=== PATIENT | female | born 1935 | race Caucasian/White ===

== ENCOUNTER → 2017-12-07 05:00 | Outpatient (REF) | payer MEDICARE, SELFPAY ==
[2017-12-07 09:23] LABS: Digoxin Level 2.02 ng/mL (0.80-2.00)
== END ==
LOC: OLS.DANBUR 05:00
PROVIDERS: Visit Provider Family Medicine
DX: I48.91 Unspecified atrial fibrillation (principal); I50.9 Heart failure, unspecified
CPT/HCPCS: 36415; 80162

== ENCOUNTER → 2017-12-12 07:55 | Outpatient (REF) | payer MEDICARE, SELFPAY ==
[2017-12-12 09:29] LABS: Vitamin B12 788 pg/mL (211-911)
== END ==
LOC: OLS.DANBUR 07:55
PROVIDERS: Visit Provider Family Medicine
DX: E53.8 Deficiency of other specified B group vitamins (principal)
CPT/HCPCS: 36415; 82607

== ENCOUNTER → 2017-12-28 05:00 | Outpatient (REF) | payer MEDICARE, SELFPAY ==
[2017-12-28 08:41] LABS: Hematocrit 35.6 % (37-47); Hemoglobin 10.2 g/dl (12.0-15.0); Mean Corp Hgb Conc 28.7 g/gl (32-36); Mean Corpuscular Hgb 24.3 pg (27.0-32.0); Mean Corpuscular Volume 84.8 fL (81-99); Mean Platelet Vol. 9.7 fl (6.2-12.0); Platelet Count 262 K/mm3 (150-450); RBC Distribution Width SD 68.3 fl (35.1-43.9); White Blood Count 5.3 K/mm3 (4.4-11.0)
[2017-12-28 08:46] LABS: Scan Indicated on CBC? Y/N YES- FLAGS NOTED
[2017-12-28 09:04] LABS: ALB/GLOB Ratio 0.8 RATIO (0.9-2.4); AST(SGOT) 20 U/L (15-37); Alanine Aminotransfer ALT/SGPT 17 U/L (13-56); Alkaline Phosphatase 85 U/L (45-117); Anion Gap 7 (5-15); BUN 20 mg/dL (7-18); BUN/Creat Ratio 15.7 RATIO (10-20); Calcium,Total 9.2 mg/dL (8.5-10.1); Chloride 102 mmol/L (98-107); Creatinine, Serum 1.27 mg/dL (0.55-1.02); EST Glomerular Filtration Rate 43 mL/min (>60); Est Glom Filt Rate - Afr Amer 52 mL/min (>60); Globulin 3.7 g/dL (2.2-4.2); Glucose 79 mg/dL (74-106); Potassium 4.1 mmol/L (3.5-5.1); Protein, Total 6.7 g/dL (6.4-8.2); Sodium Level 140 mmol/L (136-145); Thyroid Stim Hormone (TSH) 2.07 uIU/mL (0.358-3.74)
== END ==
LOC: OLS.DANBUR 05:00
PROVIDERS: Visit Provider Family Medicine
DX: I48.91 Unspecified atrial fibrillation (principal); D64.9 Anemia, unspecified; I11.0 Hypertensive heart disease with heart failure; I50.9 Heart failure, unspecified; E78.5 Hyperlipidemia, unspecified; E03.9 Hypothyroidism, unspecified; I25.10 Atherosclerotic heart disease of native coronary artery without angina pectoris; E53.8 Deficiency of other specified B group vitamins
CPT/HCPCS: 36415; 80053; 84443; 85027

== ENCOUNTER → 2018-01-04 05:00 | Outpatient (REF) | payer MEDICARE, SELFPAY ==
[2018-01-04 08:35] LABS: Anion Gap 6 (5-15); BUN 21 mg/dL (7-18); BUN/Creat Ratio 16.5 RATIO (10-20); Calcium,Total 9.5 mg/dL (8.5-10.1); Chloride 103 mmol/L (98-107); Creatinine, Serum 1.27 mg/dL (0.55-1.02); EST Glomerular Filtration Rate 43 mL/min (>60); Est Glom Filt Rate - Afr Amer 52 mL/min (>60); Glucose 80 mg/dL (74-106); Potassium 4.3 mmol/L (3.5-5.1); Sodium Level 140 mmol/L (136-145); Thyroid Stim Hormone (TSH) 3.12 uIU/mL (0.358-3.74)
== END ==
LOC: OLS.DANBUR 05:00
PROVIDERS: Visit Provider Family Medicine
DX: I48.91 Unspecified atrial fibrillation (principal); D64.9 Anemia, unspecified; I50.9 Heart failure, unspecified; I10 Essential (primary) hypertension; E78.5 Hyperlipidemia, unspecified; E03.9 Hypothyroidism, unspecified
CPT/HCPCS: 36415; 80048; 84443

== ENCOUNTER 2018-01-31 04:33 | Emergency (ER) | payer MEDICARE, SELFPAY ==
[2018-01-31 04:35] VITALS: BP 137/82; PULSE 80; RESP 18; TEMP 37; O2SAT 94; BMI 22.4
[2018-01-31 04:40] VITALS: O2SAT 95
--- NOTE | 2018-01-31 04:52 | RAD_ITS ---
HISTORY: S/P FALLRT WRIST AND HAND ARE PAINFULMULTIPLE SKIN TEARS TO POSTERIOR HAND AND WRIST COMPARISON: None FINDINGS: XR Hand Min 3 Views: Generalized bony demineralization. No fracture or dislocation. At the wrist, advanced osteoarthritis with marked narrowing of the first carpometacarpal joint accompanied by subchondral sclerosis, marginal spurring, and periarticular ossicle formation. At the hand, advanced osteoarthritis of the DIP joints with joint space narrowing and marginal sclerosis. Marked narrowing of the IP joint of the thumb accompanied by marginal spurring and mild subluxation deformity. Additional narrowing of the metacarpophalangeal joints. Atherosclerotic calcifications. RAD/Hand Min 3 Views IMPRESSION: 1. Negative for fracture or acute osseous abnormality. 2. Polyarticular advanced osteoarthritis. Details above. at 0548 Reported and signed by: Jesus Mobley MD Electronically Signed: Jesus Mobley, at 5:46 EST Tel , Service support ,
--- NOTE | 2018-01-31 04:52 | RAD_ITS ---
HISTORY: S/P FALLRT WRIST AND HAND ARE PAINFULMULTIPLE SKIN TEARS TO POSTERIOR HAND AND WRIST COMPARISON: None FINDINGS: XR Wrist Min 3 Views No fracture or dislocation. Advanced osteoarthritis with marked narrowing of the first carpometacarpal joint accompanied by subchondral sclerosis, marginal spurring, and periarticular ossicle formation. Additional mild narrowing of the scaphotrapezial-trapezoidal joint. Extensive atherosclerotic calcifications. RAD/Wrist min 3 Views IMPRESSION: 1. No fracture or acute disease. 2. Advanced osteoarthritis of the radial right wrist. 3. Atherosclerotic calcifications. at 0541 Reported and signed by: Jesus Mobley MD Electronically Signed: Jesus Mobley, at 5:39 EST Tel , Service support ,
--- NOTE | 2018-01-31 04:52 | CT_ITS ---
HISTORY: FELL IN BATHROOM, DENIES HITTING HEAD, NECK PAIN TECHNIQUE: Helically acquired images were obtained of the cervical spine. 2D reformatted images were reviewed. A radiation dose optimization technique was used for this scan. IV Contrast dosage and agent: None. COMPARISON: None FINDINGS: Cervical hyperlordosis and this is commonly seen in association with dorsal kyphosis in the elderly. Cervical vertebra are normal in height. No fracture or suspicious bony lesion. The craniocervical junction is intact. No central canal or foraminal stenosis identified. Incidental note of atherosclerotic, ectatic thoracic aorta. CT/Spine Cervical without Contras IMPRESSION: 1. Negative for fracture or acute osseous abnormality. 2. Cervical hyperlordosis. 3. No spinal stenosis or significant degenerative changes. 4. Atherosclerotic, ectatic thoracic aorta. Individualized dose optimization techniques were used for this CT. at 0537 Reported and signed by: Jesus Mobley MD Electronically Signed: Jesus Mobley, at 5:35 EST Tel , Service support ,
--- NOTE | 2018-01-31 04:52 | CT_ITS ---
HISTORY: FELL IN BATHROOM, DENIES HITTING HEAD, NECK PAIN TECHNIQUE: Multiple axial images were obtained of the brain without intravenous contrast. A radiation dose optimization technique was used for this scan. IV Contrast dosage and agent: None. COMPARISON: None FINDINGS: Normal ventricles. Mild cerebral cortical atrophy. Tiny perivascular space or possibly tiny remote lacunar infarct at the left basal ganglia. No intercranial mass, hemorrhage, or acute disease. Posterior fossa structures are unremarkable. No suspicious extra-axial fluid collection. Bilateral carotid atherosclerotic calcifications. Intact calvarium. No scalp hematoma seen. As visualized, the mastoids and paranasal sinuses are unremarkable. CT/Brain/Head without Contrast IMPRESSION: No hemorrhage or acute disease. Individualized dose optimization techniques were used for this CT. at 7130 Reported and signed by: Jesus Mobley MD Electronically Signed: Jesus Mobley, at 5:28 EST Tel , Service support ,
--- NOTE | 2018-01-31 05:59 | ED.VISSUMM ---
- ER Visit Summary Date of Service: 01/31/18 Chief Complaint: Fall History of Present Illness: The patient is a 82 F who presents after a fall. She does have a history of dementia. She does not remember her fall. The assisted living facility reported that she is often confused. She was able to crawl to the recliner and called the nurse herself. She currently complains of pain in her right wrist and hand. She also complains of some neck pain. No headache. No vomiting. No chest pain shortness of breath or recent illness. No fever. Physical Examination: Afebrile vitals normal Heart regular rate and rhythm C-collar No reproducible cervical tenderness Lungs are clear Abdomen soft Active full range of motion x4 extremities Multiple skin tears over the back of the right hand there is a stellate skin tear measuring a total of 5 cm there is a second above this which measures 3 cm and there is a 1 cm skin tear near the second metacarpal phalangeal joint she has brisk capillary refill normal sensation Test Results: CT of the head is negative for hemorrhage no acute findings. CT the cervical spine is negative fracture. X-rays of the right wrist show no fracture as read by radiology. X-rays of the right hand as read by me show no fracture. Emergency Department Course and Treatment: Patient has multiple skin tears. She is also allergic to local anesthetics and Benadryl. I do not leave these would be suturable skin would likely just tear further. Steri-Strips were applied to approximate multiple skin tears given that they are quite wide. Dressings were applied. Imaging negative as above and patient will be discharged back to her assisted living. Treatment Plan: [] Disposition: Discharge Impression: Cervical sprain Multiple skin tears of right hand This note was generated with [employer] ([place] dictation software. It may contain incorrect words, spelling, and punctuation that were not noted in review of the chart prior to signing ED Disposition - Plan for ED Patient: Chief Complaint: Fall Referrals: José Manuel Conley MD [Primary Care Provider] -
--- NOTE | 2018-01-31 06:01 | ED.DEP ---
ED Disposition - Plan for ED Patient: Chief Complaint: Fall Instructions: ED Avulsion Dermal, ED Sprain Strain Neck Referrals: José Manuel Conley MD [Primary Care Provider] -
--- NOTE | 2018-01-31 06:25 | NURSING ---
report called to [facility] for return of pt. spoke with nurse about results and hand skin tear.
[2018-01-31 06:27] VITALS: BP 121/66; PULSE 92; RESP 16; O2SAT 96
== END 2018-01-31 06:28 | disposition home or self-care (01) ==
LOC: ED 04:54
PROVIDERS: Emergency Provider Emergency Medicine; Family Provider Family Medicine; PCP Family Medicine
DX: S13.4XXA Sprain of ligaments of cervical spine, initial encounter (principal); S61.411A Laceration without foreign body of right hand, initial encounter; W18.30XA Fall on same level, unspecified, initial encounter; Y93.9 Activity, unspecified; Y92.129 Unspecified place in nursing home as the place of occurrence of the external cause; Y99.9 Unspecified external cause status; F03.90 Unspecified dementia, unspecified severity, without behavioral disturbance, psychotic disturbance, mood disturbance, and anxiety; I25.10 Atherosclerotic heart disease of native coronary artery without angina pectoris; K21.9 Gastro-esophageal reflux disease without esophagitis; I10 Essential (primary) hypertension; I48.91 Unspecified atrial fibrillation; E78.00 Pure hypercholesterolemia, unspecified; Z72.0 Tobacco use; Z95.0 Presence of cardiac pacemaker
CPT/HCPCS: 70450; 72125; 73110; 73130; 99284

== ENCOUNTER → 2018-03-22 14:15 | Outpatient (REF) | payer MEDICARE, SELFPAY ==
[2018-03-23 08:38] LABS: Bacteria 0 SEEN /hpf (None Seen); Red Blood Cells-Urine 0 SEEN /hpf (0-5); White Blood Cells 0 SEEN /hpf (0-5)
[2018-03-23 08:55] LABS: Color, Urine Yellow (Yellow); Glucose, Dipstick Normal (Normal); Ketone-Dipstick Negative (Negative); Leukocyte Esterase-Dipstick Negative /ul (Negative); Nitrite-Dipstick Negative (Negative); Occult Blood-Urine Negative /ul (Negative); Protein-Dipstick Negative (Negative); Specific Gravity, Urine 1.015 (1.002-1.030); Urine Bilirubin Dipstick Negative (Negative); Urine Clarity Sl. Cloudy (Clear); Urine Urobilinogen Normal (Normal)
[2018-03-23 08:57] LABS: Calcium Oxalate Crystals Ur RARE /hpf (<or=2+); Mucous, Urine RARE /hpf (<or=2+); Squamous Epithelial Cells - UA 0-5 SEEN /hpf (5-10)
== END ==
LOC: OLS.DANBUR 14:15
PROVIDERS: Visit Provider Family Medicine
DX: R35.0 Frequency of micturition (principal); R32 Unspecified urinary incontinence
CPT/HCPCS: 81001; 87086; 87088

== ENCOUNTER → 2018-03-27 06:00 | Outpatient (REF) | payer MEDICARE, SELFPAY ==
[2018-03-27 08:49] LABS: Color, Urine Straw (Yellow); Glucose, Dipstick Normal (Normal); Ketone-Dipstick Negative (Negative); Leukocyte Esterase-Dipstick Negative /ul (Negative); Nitrite-Dipstick Negative (Negative); Occult Blood-Urine Negative /ul (Negative); Protein-Dipstick Negative (Negative); Urine Bilirubin Dipstick Negative (Negative); Urine Clarity Sl. Cloudy (Clear); Urine Urobilinogen Normal (Normal)
== END ==
LOC: OLS.DANBUR 06:00
PROVIDERS: Visit Provider Family Medicine
DX: N39.0 Urinary tract infection, site not specified (principal)
CPT/HCPCS: 81002; 87086; 87088

== ENCOUNTER 2018-04-18 16:17 | Inpatient (IN) | payer MEDICARE, SELFPAY ==
[2018-04-18 16:19] VITALS: BP 123/68; PULSE 63; PULSE 67; RESP 18; TEMP 36.7; O2SAT 95; O2SAT 96; BMI 27.2
--- NOTE | 2018-04-18 16:39 | RAD_ITS ---
STUDY: X-RAY - LEFT HIP REASON FOR EXAM: Female, 82 years old. Trauma TECHNIQUE: 2 views of the hip. COMPARISON: None. FINDINGS: There is an acute spiral fracture extending from the subtrochanteric shaft through the lesser trochanter with overlapping and varus angulation of fracture fragments.. Normal acetabulum. Normal hip joint. Deformity of the left inferior and superior pubic rami most likely representing old healed fractures. RAD/HIP, UNI W/ Pelvis 2-3 Views IMPRESSION: Acute displaced subtrochanteric/ intertrochanteric fracture of the left hip Electronically Signed: Everette Diez MD at 18:30 EST , Service support ,
--- NOTE | 2018-04-18 16:40 | EKG12_ITS ---
Test Reason : FALL Blood Pressure : / mmHG Vent. Rate : 069 BPM Atrial Rate : 069 BPM P-R Int : 186 ms QRS Dur : 138 ms QT Int : 466 ms P-R-T Axes : 051 -75 083 degrees QTc Int : 499 ms AV dual-paced rhythm Abnormal ECG Confirmed by ELOISA KILLIAN, ROMEO ([id number]), newspaper editor CONNIE DANIELS ([id number]) on 04/20/2018 3:13:17 PM Referred By: BRAYDEN Confirmed By:ROMEO AMIN MD
--- NOTE | 2018-04-18 16:40 | RAD_ITS ---
STUDY: X-RAY CHEST REASON FOR EXAM: Female, 82 years old. Trauma TECHNIQUE: AP portable COMPARISON: None. FINDINGS: The lungs are clear and expanded. There is no demonstrated pleural abnormality. Heart is mildly enlarged. Normal mediastinum and chris. Normal visualized pulmonary arteries. Normal visualized aortic arch and descending thoracic aorta. Pacer noted on the left with electrodes in satisfactory position Dorsal spine demonstrates scoliosis and degenerative changes. Normal visualized ribs, clavicles, and shoulders. There is no demonstrated abnormality of the visualized soft tissue structures of the upper abdomen. RAD/Chest 1 View (Portable) IMPRESSION: No acute cardiopulmonary pathology Electronically Signed: Everette Diez MD at 18:27 EST , Service support ,
--- NOTE | 2018-04-18 16:40 | CT_ITS ---
STUDY: CT BRAIN WITHOUT CONTRAST REASON FOR EXAM: Female, 82 years old. Trauma RADIATION DOSAGE (If Supplied By Facility): CTDIvol = ( 44.99 ) mGy, DLP = ( 745.49 ) mGycm TECHNIQUE: Transaxial CT imaging of the brain was performed without administration of intravenous contrast material. Individualized dose optimization techniques were used for this CT. COMPARISON: January 31, 2018 FINDINGS: Normal soft tissue structures. Normal calvarium. Mild atrophy and moderate periventricular white matter ischemic changes. Normal basal ganglia and thalami. Normal brainstem. Normal cerebellum. There is no intracranial hemorrhage. There are no findings of an acute ischemic infarction. Postsurgical changes of the orbits. Normal visualized paranasal sinuses. CT/Brain/Head without Contrast IMPRESSION: Atrophy and moderate periventricular white matter ischemic changes. No evidence for acute intracranial bleed Electronically Signed: Everette Diez MD at 18:18 EST , Service support ,
--- NOTE | 2018-04-18 16:40 | CT_ITS ---
STUDY: CT CERVICAL SPINE WITHOUT CONTRAST REASON FOR EXAM: Female, 82 years old. Trauma RADIATION DOSAGE (If Supplied By Facility): CTDIvol = ( 15.75 ) mGy, DLP = ( 270.28 ) mGycm TECHNIQUE: High resolution transaxial imaging was performed without contrast material. Sagittal and coronal images were reconstructed. Individualized dose optimization techniques were used for this CT. COMPARISON: None FINDINGS: Normal craniovertebral junction. Normal anterior atlantoaxial articulation. Normal odontoid process. Normal cervical lordosis. Normal vertebral bodies and posterior osseous elements. C2-3: Normal endplates. Normal disc height and small central disc protrusion. Normal central canal and intervertebral neuroforamina. C3-4: Normal endplates. Normal disc height and minor bulging of the disc. Normal central canal and intervertebral neuroforamina. C4-5: Normal endplates. Normal disc height and small central disc protrusion. Normal central canal. Mild left neural foraminal encroachment secondary to bony hypertrophy C5-6: Normal endplates. Normal disc height and minimal bulging of the disc. Normal central canal. Mild left neural foraminal stenosis secondary to bony hypertrophy. C6-7: Normal endplates. Normal disc height and morphology. Normal central canal. Minor left neuroforaminal stenosis secondary to bony hypertrophy. C7-T1: Normal endplates. Normal disc height and morphology. Normal central canal and intervertebral neuroforamina. Normal visualized soft tissue structures. CT/Spine Cervical without Contras IMPRESSION: No evidence for acute fracture or subluxation. Mild spondylosis Electronically Signed: Everette Diez MD at 18:26 EST , Service support ,
--- NOTE | 2018-04-18 16:42 | ED.VISSUMM ---
- ER Visit Summary Date of Service: 04/18/18 Chief Complaint: Fall History of Present Illness: The patient is a 82 F who presents with left hip injury that occurred today after a fall. Patient has a history of dementia does not remember what happened at the time of the fall. Patient states she remembers waking up on the floor. Patient states her pain is over the left hip. Patient states her pain is worse with movement. Patient denies any paresthesias or weakness. Patient does not think she hit her head. Patient denies any neck pain or back pain. Physical Examination: Vital signs are stable. Patient is afebrile. Patient is in no acute distress. Oral mucosa is pink and moist. Neck is supple. Trachea is midline. There is no JVD noted. Heart was regular rate and rhythm. Lungs are clear and equal bilaterally. Abdomen is soft and nontender. Cranial nerves II through XII are grossly intact. Patient is awake, alert, and oriented x2. Musculoskeletal exam reveals tenderness over the left hip. The left lower extremity is shortened and externally rotated. There is pain with internal and external rotation. Pedal pulses are equal bilaterally. Sensation was intact to light touch in all digits. The remaining physical exam is within normal limits. Test Results: X-rays of the left hip revealed a spiral oblique fracture of the right proximal femoral shaft in the subtrochanteric area. There is some displacement of the distal fragment medially. CT scan of the brain does not show any evidence of acute intracranial abnormality. CT scan of the cervical spine does not show any acute fracture or subluxation. Chest x-ray does not show any acute cardiopulmonary process. CBC was normal. Basic metabolic profile showed a slightly elevated BUN and creatinine of 34 and 1.61. Urinalysis was normal. PT with INR and PTT were normal. EKG showed a paced rhythm with a left bundle branch block. There are no acute ST or T wave changes. Emergency Department Course and Treatment: Patient was given morphine here. An ultrasound-guided femoral nerve block was performed by Dr. Monroe. Patient was given Zofran for vomiting. Patient was also given a subsequent dose of Dilaudid 0.5 mg. Case was discussed with Dr. Conley. He recommended hospitalist admission and consult. Case was discussed with Dr. Olivares. He will admit the patient. Disposition: Admit to hospital Impression: Left subtrochanteric fracture This note was generated with Dragon dictation software. It may contain incorrect words, spelling, and punctuation that were not noted in review of the chart prior to signing ED Disposition - Plan for ED Patient: Disposition: Acute Care Hospital [facility] Chief Complaint: Fall Diagnosis: Subtrochanteric fracture of left femur Referrals: José Manuel Conley MD [Primary Care Provider] -
--- NOTE | 2018-04-18 16:45 | NURSING ---
NO OLD EKGS
[2018-04-18] MEDS: Bupivacaine Mpf 0.5% 30 ML VIAL INFILT (16:57)
[2018-04-18] MEDS: Morphine 4 MG/ML Syringe IM (16:58)
[2018-04-18 17:00] LABS: ALB/GLOB Ratio 0.9 RATIO (0.9-2.4); AST(SGOT) 33 U/L (15-37); Alanine Aminotransfer ALT/SGPT 21 U/L (13-56); Albumin, Serum 3.6 g/dL (3.2-5.0); Alkaline Phosphatase 104 U/L (45-117); Anion Gap 10 (5-15); BUN 34 mg/dL (7-18); BUN/Creat Ratio 21.1 RATIO (10-20); Calcium,Total 8.8 mg/dL (8.5-10.1); Chloride 105 mmol/L (98-107); Creatinine, Serum 1.61 mg/dL (0.55-1.02); EST Glomerular Filtration Rate 32 mL/min (>60); Est Glom Filt Rate - Afr Amer 39 mL/min (>60); Estimated Creatinine Clearance 20.94 ml/min; Globulin 3.8 g/dL (2.2-4.2); Glucose 105 mg/dL (74-106); Potassium 4.3 mmol/L (3.5-5.1); Protein, Total 7.4 g/dL (6.4-8.2); Sodium Level 141 mmol/L (136-145)
[2018-04-18 17:05] LABS: Absolute Lymphocyte Count 2.08 X10^3/ul (0.83-4.51); Absolute Neutrophil Count 3.4 X10^3/uL (2.0-7.7); Basophil# 0.05 X10^3/uL; Basophil% 0.8 % (0-1); Eosinophil# 0.15 X10^3/uL; Eosinophils% 2.4 % (0-5); Hematocrit 40.1 % (37-47); Hemoglobin 12.4 g/dl (12.0-15.0); Lymphocyte # 2.08 X10^3/ul (4.0); Lymphocyte % 32.8 % (19-41); Mean Corp Hgb Conc 30.9 g/gl (32-36); Mean Corpuscular Hgb 27.7 pg (27.0-32.0); Mean Corpuscular Volume 89.7 fL (81-99); Monocyte# 0.64 X10^3/uL; Monocyte% 10.1 % (0-10); Neutrophil % 53.6 % (47-70); Platelet Count 218 K/mm3 (150-450); RBC Distribution Width CV 15.7 % (11.6-14.6); RBC Distribution Width SD 51.5 fl (35.1-43.9); Red Blood Count 4.47 M/mm3 (4.2-5.4); White Blood Count 6.3 K/mm3 (4.4-11.0)
[2018-04-18 17:06] LABS: POSITIVE COUNT NO; POSITIVE DIFFERENTIAL NO; POSITIVE MORPHOLOGY NO
[2018-04-18 17:08] LABS: Prothrombin Time (Protime)PT. 13.5 SECONDS (11.7-14.9)
[2018-04-18 17:09] LABS: Partial Thromboplast Time 34.9 Seconds (24.1-36.2)
--- NOTE | 2018-04-18 17:10 | ED.DCSUM_ITS ---
- ER Visit Summary Date of Service: 04/18/18 Procedure Note: Patient presented with a hip injury. Patient was verbally consented for ultrasound-guided femoral nerve block. Risks and benefits were explained, patient did voiced understanding. Patient's femoral nerve was identified using a linear probe. Patient's skin was then cleaned of ultrasound gel, and was prepped with chlorhexidine. Tegaderm was placed over top of the ultrasound probe. Clean gloves were utilized, a 19-gauge spinal needle with extension tubing and 20 cc of bupivacaine were used. Under direct visualization the needle was advanced until it was adjacent to but not touching the femoral nerve. Small injection aliquots of bupivacaine were visualized to ensure good placem ent, and then a total of 20 cc of bupivacaine was infiltrated. Patient tolerated this well. This note was generated with [employer] dictation software. It may contain incorrect words, spelling, and punctuation that were not noted in review of the chart prior to signing ED Disposition - Plan for ED Patient: Chief Complaint: Fall Referrals: José Manuel Conley MD [Primary Care Provider] -
[2018-04-18 17:35] LABS: Bacteria 0 SEEN /hpf (None Seen); Mucous, Urine 0 SEEN /hpf (<or=2+); Red Blood Cells-Urine 0 SEEN /hpf (0-5); White Blood Cells 0 SEEN /hpf (0-5)
[2018-04-18 17:39] LABS: Color, Urine Yellow (Yellow); Glucose, Dipstick Normal (Normal); Ketone-Dipstick Negative (Negative); Leukocyte Esterase-Dipstick Negative /ul (Negative); Nitrite-Dipstick Negative (Negative); Occult Blood-Urine Negative /ul (Negative); Protein-Dipstick Negative (Negative); Urine Bilirubin Dipstick Negative (Negative); Urine Clarity Clear (Clear); Urine Urobilinogen 1 mg/dl (Normal)
[2018-04-18 17:47] LABS: Hyaline Cast 0-5 SEEN /lpf (0-5); Squamous Epithelial Cells - UA 0-5 SEEN /hpf (5-10)
[2018-04-18] MEDS: Ondansetron 4 MG/2 ML Vial IV (18:01)
[2018-04-18 18:04] LABS: Digoxin Level 0.47 ng/mL (0.80-2.00)
[2018-04-18] MEDS: HYDROmorphone 0.5 MG/0.5 ML SYRINGE IV ×2 (18:10→19:14)
--- NOTE | 2018-04-18 18:35 | PCM.HP.STD ---
Problem List (1) Hip fracture Status: Acute (2) CHF (congestive heart failure) Status: Chronic (3) Afib Status: Chronic (4) CKD (chronic kidney disease) stage 3, GFR 30-59 ml/min Status: Chronic (5) Dementia Status: Chronic (6) Hypothyroidism Status: Chronic History of Present Illness Date of Admission: 04/18/18 Chief Complaint: left hip pain, fall The patient is a 82 year old F with a pmhx of dementia, afib, pacmaker in place, CHF, CKDIII, htn, hypothyroidism, who presents to the ER from [facility], after being found down after an unwitnessed fall. She was brought in by EMS and cannot provide a story as to what happened 2/2 dementia, just that she woke up on the floor. She is usually alert and oriented to self and place. She has had dementia for about 2 years that has worsened since she lost her . She had significant left hip pain requiring dilaudid. She then unerwent a femoral nerve block. She is currently resting comfortably in bed. She had imaging done revealing a subtroch/intertroch fracture of the left hip. She will be admitted for hip repair with Dr. Conley. [] Past Medical History Past Medical History (Chronic Problems): Chronic Problems CHF (congestive heart failure) (Chronic) Afib (Chronic) CKD (chronic kidney disease) stage 3, GFR 30-59 ml/min (Chronic) Dementia (Chronic) Hypothyroidism (Chronic) Allergies diphenhydramine [From Benadryl] Allergy (Verified 04/18/18 16:19) Unknown flecainide Allergy (Verified 04/18/18 16:19) Unknown procainamide Allergy (Verified 04/18/18 16:19) Unknown tetanus toxoid, adsorbed Allergy (Verified 04/18/18 16:19) Unknown trimethobenzamide [From Tigan] Allergy (Verified 04/18/18 16:19) Unknown Home Medications: Ambulatory Orders Medication Instructions Recorded Apixaban [Eliquis] 2.5 mg PO BID 01/31/18 Calcium Carbonate/Vitamin D3 1 each PO BID 01/31/18 [Calcium 600 + Vit D Caplet] Furosemide [Lasix] 40 mg PO DAILY 01/31/18 Levothyroxine [Synthroid] 75 mcg PO DAILY 01/31/18 Melatonin 5 mg PO DAILY 01/31/18 Nitroglycerin [Nitrostat] 0.4 mg SL X1 PRN 01/31/18 Omeprazole [Prilosec] 20 mg PO DAILY 01/31/18 Potassium Chloride [K-Dur] 20 meq PO BID 01/31/18 Ramipril [Altace] 1.25 mg PO DAILY 01/31/18 hydrOXYzine tablet [Atarax tablet] 25 mg PO PRN PRN 01/31/18 Acetaminophen [Tylenol] 650 mg PO TID PRN PRN 04/18/18 Ammonium Lactate [Skin Treatment] 1 applic TP DAILY 04/18/18 Ascorbic Acid [Vitamin C] 500 mg PO BID 04/18/18 Aspirin [Aspirin, Baby] 81 mg PO DAILY@0800 04/18/18 Cholecalciferol (Vitamin D3) 400 unit PO DAILY 04/18/18 [Vitamin D3] Cyanocobalamin [Vitamin B12] 100 mcg IM Q30D 04/18/18 Digoxin [Digox] 62.5 mcg PO DAILY 04/18/18 Donepezil HCl 5 mg PO QHS 04/18/18 Ferrous Sulfate 325 mg PO BID 04/18/18 Metoprolol Succinate [Toprol Xl] 25 mg PO DAILY 04/18/18 Mirtazapine [Remeron] 7.5 mg PO DAILY 04/18/18 Sertraline HCl [Zoloft] 75 mg PO DAILY 04/18/18 traMADol [Ultram (G)] 50 mg PO Q6H PRN PRN 04/18/18 Surgical History: hysterectomy, - - pacemaker, bunionectomy Psychiatric History: Anxiety, Depression TELEPHONIC NURSE History: No pertinent TELEPHONIC NURSE history Lives: - - assisted living [facility] Smoking Status: Never smoker Tobacco Use: Non-smoker Alcohol: None Drugs: None - *Family History Maternal History Items: No pertinent history Paternal History Items: No pertinent history Review of Systems Respiratory: Denies: Shortness of breath at rest, Sputum production Musculoskeletal: Reports: Joint Pain Psychiatric: Reports: Anxiety, Depression Unable to obtain accurate/complete ROS d/t: Pt has severe dementia VTE Information - Inpt Only VTE Present on Admission: No VTE Mechan Device Prophylaxis: None Reason prophylaxis not ordered:: Medical Contraindication Patient Problems: Active and Suspected Problems Hip fracture (Acute) - Physical Exam General: Alert, Cooperative, - - a/o x person / place HEENT: Atraumatic, PERRLA, EOMI, Normocephalic Neck: Supple, No JVD, Negative Carotid Bruits Lungs: Clear to auscultation, Normal air movement Cardiovascular: Regular rate Abdomen: Bowel Sounds Present, Soft, Non Tender Extremities: No edema, Capillary Refill Less than 3 Seconds Skin: No rashes, No breakdown Musculoskeletal: No Tenderness to Palpation of Joints or Extremities Neurological: Cranial nerves II-XII grossly intact Psych/Mental Status: Normal Affect, Appropriate Vital Signs Temp Pulse Resp BP Pulse Ox 98.1 F 67 18 123/68 H 96 04/18/18 16:19 04/18/18 16:19 04/18/18 16:19 04/18/18 16:19 04/18/18 16:19 Oxygen Delivery Method Room Air Weight: 148 lb 12.992 oz Body Mass Index (BMI) 27.2 Laboratory Tests Past 24 Hrs 04/18/18 04/18/18 04/18/18 16:20 16:20 16:20 WBC 6.3 RBC 4.47 Hgb 12.4 Hct 40.1 MCV 89.7 MCH 27.7 MCHC 30.9 L RDW 15.7 H RDW Differential 51.5 H Plt Count 218 MPV 10.0 Immature Gran % (Auto) 0.300 Neut % (Auto) 53.6 Lymph % (Auto) 32.8 [place] % (Auto) 10.1 H Eos % (Auto) 2.4 Baso % (Auto) 0.8 Absolute Neuts (auto) 3.4 Absolute Lymphs (auto) 2.08 Total Counted Not Reportable PT 13.5 INR 1.0 APTT 34.9 Sodium 141 Potassium 4.3 Chloride 105 Carbon Dioxide 26.0 Anion Gap 10 BUN 34 H Creatinine 1.61 H Estim Creat Clear Calc 20.94 Est GFR (MDRD) Af Amer 39 L Est GFR (MDRD) Non-Af 32 L BUN/Creatinine Ratio 21.1 H Glucose 105 Calcium 8.8 Total Bilirubin 0.80 AST 33 ALT 21 Alkaline Phosphatase 104 Total Protein 7.4 Albumin 3.6 Globulin 3.8 Albumin/Globulin Ratio 0.9 Urine Color Urine Clarity Urine pH Ur Specific [place] Urine Protein Urine Glucose (UA) Urine Ketones Urine Occult Blood Urine Nitrite Urine Bilirubin Urine Urobilinogen Ur Leukocyte Esterase Urine RBC Urine WBC Ur Squamous Epith Cells Urine Bacteria Hyaline Casts Urine Mucus Digoxin 04/18/18 04/18/18 16:20 17:28 WBC RBC Hgb Hct MCV MCH MCHC RDW RDW Differential Plt Count MPV Immature Gran % (Auto) Neut % (Auto) Lymph % (Auto) [place] % (Auto) Eos % (Auto) Baso % (Auto) Absolute Neuts (auto) Absolute Lymphs (auto) Total Counted PT INR APTT Sodium Potassium Chloride Carbon Dioxide Anion Gap BUN Creatinine Estim Creat Clear Calc Est GFR (MDRD) Af Amer Est GFR (MDRD) Non-Af BUN/Creatinine Ratio Glucose Calcium Total Bilirubin AST ALT Alkaline Phosphatase Total Protein Albumin Globulin Albumin/Globulin Ratio Urine Color Yellow Urine Clarity Clear Urine pH 5.0 Ur Specific [place] 1.020 Urine Protein Negative Urine Glucose (UA) Normal Urine Ketones Negative Urine Occult Blood Negative Urine Nitrite Negative Urine Bilirubin Negative Urine Urobilinogen 1 H Ur Leukocyte Esterase Negative Urine RBC 0 SEEN Urine WBC 0 SEEN Ur Squamous Epith Cells 0-5 SEEN Urine Bacteria 0 SEEN Hyaline Casts 0-5 SEEN Urine Mucus 0 SEEN Digoxin 0.47 L Assessment/Plan All Active Problems Hip fracture (Acute) 1. Acute displaced subtrochanteric, intertrochanteric fracture of the left hip secondary to unwitnessed fall-patient found down. Dr. Conley consulted. Hold Eliquis. Patient will have surgery when okay per orthopedics. Nerve block done. Continue supportive care. UA neg. CT brain and C spine neg. CXR neg. INR 1.0. 2. Severe dementia-patient lives at [facility]. Continue donepezil. 3. Atrial fibrillation-pacemaker in place. Rate stable. Eliquis held as above. Continue digoxin, metoprolol. Dig level low. 4. Hypertension-stable 5. CKD 3-trend BMP. IV fluids. 6. History of CHF-avoid overhydration. No signs of volume overload at this time. 7. Hypothyroidism-Synthroid 8. Anx/Dep - remeron, zoloft, melatonin, atarax. DVT prophylaxis: SCDs Discharge planning: Patient will need long-term at discharge. This patient was seen by Zeus Avery PA-C under the supervision of Doctor Velásquez.
[2018-04-18 18:36] VITALS: BP 108/55; PULSE 57; RESP 16; O2SAT 98
--- NOTE | 2018-04-18 18:41 | HP.PCM_ITS ---
Problem List (1) Hip fracture Status: Acute (2) CHF (congestive heart failure) Status: Chronic (3) Afib Status: Chronic (4) CKD (chronic kidney disease) stage 3, GFR 30-59 ml/min Status: Chronic (5) Dementia Status: Chronic (6) Hypothyroidism Status: Chronic History of Present Illness Date of Admission: 04/18/18 Chief Complaint: left hip pain, fall The patient is a 82 year old F with a pmhx of dementia, afib, pacmaker in place, CHF, CKDIII, htn, hypothyroidism, who presents to the ER from [facility], after being found down after an unwitnessed fall. She was brought in by EMS and cannot provide a story as to what happened 2/2 dementia, just that she woke up on the floor. She is usually alert and oriented to self and place. She has had dementia for about 2 years that has worsened since she lost her . She had significant left hip pain requiring dilaudid. She then unerwent a femoral nerve block. She is currently resting comfortably in bed. She had imaging done revealing a subtroch/intertroch fracture of the left hip. She will be admitted for hip repair with Dr. Conley. [] Past Medical History Past Medical History (Chronic Problems): Chronic Problems CHF (congestive heart failure) (Chronic) Afib (Chronic) CKD (chronic kidney disease) stage 3, GFR 30-59 ml/min (Chronic) Dementia (Chronic) Hypothyroidism (Chronic) Allergies diphenhydramine [From Benadryl] Allergy (Verified 04/18/18 16:19) Unknown flecainide Allergy (Verified 04/18/18 16:19) Unknown procainamide Allergy (Verified 04/18/18 16:19) Unknown tetanus toxoid, adsorbed Allergy (Verified 04/18/18 16:19) Unknown trimethobenzamide [From Tigan] Allergy (Verified 04/18/18 16:19) Unknown Home Medications: Ambulatory Orders Medication Instructions Recorded Apixaban [Eliquis] 2.5 mg PO BID 01/31/18 Calcium Carbonate/Vitamin D3 1 each PO BID 01/31/18 [Calcium 600 + Vit D Caplet] Furosemide [Lasix] 40 mg PO DAILY 01/31/18 Levothyroxine [Synthroid] 75 mcg PO DAILY 01/31/18 Melatonin 5 mg PO DAILY 01/31/18 Nitroglycerin [Nitrostat] 0.4 mg SL X1 PRN 01/31/18 Omeprazole [Prilosec] 20 mg PO DAILY 01/31/18 Potassium Chloride [K-Dur] 20 meq PO BID 01/31/18 Ramipril [Altace] 1.25 mg PO DAILY 01/31/18 hydrOXYzine tablet [Atarax tablet] 25 mg PO PRN PRN 01/31/18 Acetaminophen [Tylenol] 650 mg PO TID PRN PRN 04/18/18 Ammonium Lactate [Skin Treatment] 1 applic TP DAILY 04/18/18 Ascorbic Acid [Vitamin C] 500 mg PO BID 04/18/18 Aspirin [Aspirin, Baby] 81 mg PO DAILY@0800 04/18/18 Cholecalciferol (Vitamin D3) 400 unit PO DAILY 04/18/18 [Vitamin D3] Cyanocobalamin [Vitamin B12] 100 mcg IM Q30D 04/18/18 Digoxin [Digox] 62.5 mcg PO DAILY 04/18/18 Donepezil HCl 5 mg PO QHS 04/18/18 Ferrous Sulfate 325 mg PO BID 04/18/18 Metoprolol Succinate [Toprol Xl] 25 mg PO DAILY 04/18/18 Mirtazapine [Remeron] 7.5 mg PO DAILY 04/18/18 Sertraline HCl [Zoloft] 75 mg PO DAILY 04/18/18 traMADol [Ultram (G)] 50 mg PO Q6H PRN PRN 04/18/18 Surgical History: hysterectomy, - - pacemaker, bunionectomy Psychiatric History: Anxiety, Depression 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[employer] history Lives: - - assisted living [facility] Smoking Status: Never smoker Tobacco Use: Non-smoker Alcohol: None Drugs: None - *Family History Maternal History Items: No pertinent history Paternal History Items: No pertinent history Review of Systems Respiratory: Denies: Shortness of breath at rest, Sputum production Musculoskeletal: Reports: Joint Pain Psychiatric: Reports: Anxiety, Depression Unable to obtain accurate/complete ROS d/t: Pt has severe dementia VTE Information - Inpt Only VTE Present on Admission: No VTE Mechan Device Prophylaxis: None Reason prophylaxis not ordered:: Medical Contraindication Patient Problems: Active and Suspected Problems Hip fracture (Acute) - Physical Exam General: Alert, Cooperative, - - a/o x person / place HEENT: Atraumatic, PERRLA, EOMI, Normocephalic Neck: Supple, No JVD, Negative Carotid Bruits Lungs: Clear to auscultation, Normal air movement Cardiovascular: Regular rate Abdomen: Bowel Sounds Present, Soft, Non Tender Extremities: No edema, Capillary Refill Less than 3 Seconds Skin: No rashes, No breakdown Musculoskeletal: No Tenderness to Palpation of Joints or Extremities Neurological: Cranial nerves II-XII grossly intact Psych/Mental Status: Normal Affect, Appropriate Vital Signs Temp Pulse Resp BP Pulse Ox 98.1 F 67 18 123/68 H 96 04/18/18 16:19 04/18/18 16:19 04/18/18 16:19 04/18/18 16:19 04/18/18 16:19 Oxygen Delivery Method Room Air Weight: 148 lb 12.992 oz Body Mass Index (BMI) 27.2 Laboratory Tests Past 24 Hrs 04/18/18 04/18/18 04/18/18 16:20 16:20 16:20 WBC 6.3 RBC 4.47 Hgb 12.4 Hct 40.1 MCV 89.7 MCH 27.7 MCHC 30.9 L RDW 15.7 H RDW Differential 51.5 H Plt Count 218 MPV 10.0 Immature Gran % (Auto) 0.300 Neut % (Auto) 53.6 Lymph % (Auto) 32.8 [place] % (Auto) 10.1 H Eos % (Auto) 2.4 Baso % (Auto) 0.8 Absolute Neuts (auto) 3.4 Absolute Lymphs (auto) 2.08 Total Counted Not Reportable PT 13.5 INR 1.0 APTT 34.9 Sodium 141 Potassium 4.3 Chloride 105 Carbon Dioxide 26.0 Anion Gap 10 BUN 34 H Creatinine 1.61 H Estim Creat Clear Calc 20.94 Est GFR (MDRD) Af Amer 39 L Est GFR (MDRD) Non-Af 32 L BUN/Creatinine Ratio 21.1 H Glucose 105 Calcium 8.8 Total Bilirubin 0.80 AST 33 ALT 21 Alkaline Phosphatase 104 Total Protein 7.4 Albumin 3.6 Globulin 3.8 Albumin/Globulin Ratio 0.9 Urine Color Urine Clarity Urine pH Ur Specific [place] Urine Protein Urine Glucose (UA) Urine Ketones Urine Occult Blood Urine Nitrite Urine Bilirubin Urine Urobilinogen Ur Leukocyte Esterase Urine RBC Urine WBC Ur Squamous Epith Cells Urine Bacteria Hyaline Casts Urine Mucus Digoxin 04/18/18 04/18/18 16:20 17:28 WBC RBC Hgb Hct MCV MCH MCHC RDW RDW Differential Plt Count MPV Immature Gran % (Auto) Neut % (Auto) Lymph % (Auto) [place] % (Auto) Eos % (Auto) Baso % (Auto) Absolute Neuts (auto) Absolute Lymphs (auto) Total Counted PT INR APTT Sodium Potassium Chloride Carbon Dioxide Anion Gap BUN Creatinine Estim Creat Clear Calc Est GFR (MDRD) Af Amer Est GFR (MDRD) Non-Af BUN/Creatinine Ratio Glucose Calcium Total Bilirubin AST ALT Alkaline Phosphatase Total Protein Albumin Globulin Albumin/Globulin Ratio Urine Color Yellow Urine Clarity Clear Urine pH 5.0 Ur Specific [place] 1.020 Urine Protein Negative Urine Glucose (UA) Normal Urine Ketones Negative Urine Occult Blood Negative Urine Nitrite Negative Urine Bilirubin Negative Urine Urobilinogen 1 H Ur Leukocyte Esterase Negative Urine RBC 0 SEEN Urine WBC 0 SEEN Ur Squamous Epith Cells 0-5 SEEN Urine Bacteria 0 SEEN Hyaline Casts 0-5 SEEN Urine Mucus 0 SEEN Digoxin 0.47 L Assessment/Plan All Active Problems Hip fracture (Acute) 1. Acute displaced subtrochanteric, intertrochanteric fracture of the left hip secondary to unwitnessed fall-patient found down. Dr. Conley consulted. Hold Eliquis. Patient will have surgery when okay per orthopedics. Nerve block done. Continue supportive care. UA neg. CT brain and C spine neg. CXR neg. INR 1.0. 2. Severe dementia-patient lives at [facility]. Continue donepezil. 3. Atrial fibrillation-pacemaker in place. Rate stable. Eliquis held as above. Continue digoxin, metoprolol. Dig level low. 4. Hypertension-stable 5. CKD 3-trend BMP. IV fluids. 6. History of CHF-avoid overhydration. No signs of volume overload at this time. 7. Hypothyroidism-Synthroid 8. Anx/Dep - remeron, zoloft, melatonin, atarax. DVT prophylaxis: SCDs Discharge planning: Patient will need fci at discharge. This patient was seen by Zeus Avery PA-C under the supervision of Doctor Velásquez.
[2018-04-18 19:06] VITALS: BMI 24.3
[2018-04-18 19:07] VITALS: BMI 27.2
[2018-04-18 19:42] VITALS: BMI 24.3
[2018-04-18 19:44] VITALS: BP 124/68; PULSE 80; RESP 18; TEMP 37.1; O2SAT 100
[2018-04-18] MEDS: 0.9% Normal Saline 1,000 ML 75 ML IV (20:26)
[2018-04-18] MEDS: Mirtazapine 15 MG Tablet 7.5 MG PO (21:37)
[2018-04-18] MEDS: Donepezil HCl 10 MG Tablet PO (21:37)
[2018-04-18] MEDS: Acetaminophen 325 MG Tablet 650 MG PO (22:37)
[2018-04-19] VITALS (16 sets, daily range): BP systolic 101–148; BP diastolic 49–110; PULSE 62–75; RESP 14–20; TEMP 36.6–37.3; O2SAT 92–100
[2018-04-19] MEDS: Levothyroxine 75 MCG Tablet PO (05:05)
[2018-04-19] MEDS: Acetaminophen 325 MG Tablet 650 MG PO (05:05)
[2018-04-19 06:15] LABS: Absolute Lymphocyte Count 1.22 X10^3/ul (0.83-4.51); Absolute Neutrophil Count 4.8 X10^3/uL (2.0-7.7); Basophil# 0.02 X10^3/uL; Basophil% 0.3 % (0-1); Eosinophil# 0.02 X10^3/uL; Eosinophils% 0.3 % (0-5); Hematocrit 32.1 % (37-47); Hemoglobin 9.8 g/dl (12.0-15.0); Lymphocyte # 1.22 X10^3/ul (4.0); Lymphocyte % 17.5 % (19-41); Mean Corp Hgb Conc 30.5 g/gl (32-36); Mean Corpuscular Volume 91.7 fL (81-99); Mean Platelet Vol. 10.1 fl (6.2-12.0); Monocyte# 0.88 X10^3/uL; Monocyte% 12.6 % (0-10); Neutrophil # 4.83 X10^3/uL (2.7-7.7); Platelet Count 200 K/mm3 (150-450); RBC Distribution Width CV 15.8 % (11.6-14.6); RBC Distribution Width SD 51.5 fl (35.1-43.9)
[2018-04-19 06:20] LABS: Anion Gap 10 (5-15); BUN 38 mg/dL (7-18); BUN/Creat Ratio 25.7 RATIO (10-20); Calcium,Total 8.3 mg/dL (8.5-10.1); Chloride 107 mmol/L (98-107); Creatinine, Serum 1.48 mg/dL (0.55-1.02); EST Glomerular Filtration Rate 36 mL/min (>60); Est Glom Filt Rate - Afr Amer 43 mL/min (>60); Estimated Creatinine Clearance 21.73 ml/min; Glucose 105 mg/dL (74-106); POSITIVE COUNT NO; POSITIVE DIFFERENTIAL NO; POSITIVE MORPHOLOGY NO; Potassium 4.5 mmol/L (3.5-5.1); Sodium Level 144 mmol/L (136-145)
[2018-04-19 06:45] LABS: AST(SGOT) 26 U/L (15-37); Alanine Aminotransfer ALT/SGPT 17 U/L (13-56); Albumin, Serum 2.8 g/dL (3.2-5.0); Alkaline Phosphatase 81 U/L (45-117); Bilirubin, Direct 0.23 mg/dL (0.00-0.30); Globulin 3.2 g/dL (2.2-4.2)
--- NOTE | 2018-04-19 07:53 | PCM.PN.HOSP ---
Patient Problems: Active and Suspected Problems Hip fracture (Acute) Subtrochanteric fracture of left femur (Acute) Subjective: Patient is an 82-year-old lady resident at an assisted living facility who apparently sustained a fall and did complain of left hip pain. Patient was brought to the emergency department where imaging studies demonstrated Acute displaced subtrochanteric/ intertrochanteric fracture of the left hip patient admitted to a regular nursing floor with consultation placed to orthopedic surgery. Objective: GENERAL: cooperative HEENT: Atraumatic; moist oral mucosa EYES; Anicteric, Normal Conjunctiva NECK; supple, normal thyroid, no distended JVD. RESPIRATORY: Diminished to auscultation bilaterally, CARDIOVASCULAR: Regular S1 S2, systolic murmurs GI: soft, non-tender, normoactive bowel sounds, : No Renal angle tenderness; EXTREMITIES: No edema, no clubbing, no cyanosis. NEURO: Awake; no lateralizing signs. SKIN: No Rash PSYCH; Normal affect Vitals/I&O's: Vital Signs Temp Pulse Resp BP Pulse Ox 98.4 F 64 17 103/59 L 98 04/19/18 03:47 04/19/18 03:47 04/19/18 03:47 04/19/18 03:47 04/19/18 03:47 Oxygen Flow Rate (L/min) 1 Oxygen Delivery Method Nasal Cannula Weight: 60.1 kg Body Mass Index (BMI) 24.3 Intake and Output for Last 24 Hours 04/17/18 04/18/18 04/19/18 23:59 23:59 23:59 Intake Total 445 / 445 468 / 468 Output Total 100 / 100 200 / 200 Balance 345 / 345 268 / 268 Laboratory Results 04/18/18 16:20: WBC 6.3, RBC 4.47, Hgb 12.4, Hct 40.1, MCV 89.7, MCH 27.7, MCHC 30.9 L, RDW 15.7 H, RDW Differential 51.5 H, Plt Count 218, MPV 10.0, Immature Gran % (Auto) 0.300, Neut % (Auto) 53.6, Lymph % (Auto) 32.8, [place] % (Auto) 10.1 H, Eos % (Auto) 2.4, Baso % (Auto) 0.8, Absolute Neuts (auto) 3.4, Absolute Lymphs (auto) 2.08, Total Counted Not Reportable 04/18/18 16:20: PT 13.5, INR 1.0, APTT 34.9 04/18/18 16:20: Sodium 141, Potassium 4.3, Chloride 105, Carbon Dioxide 26.0, Anion Gap 10, BUN 34 H, Creatinine 1.61 H, Estim Creat Clear Calc 20.94, Est GFR (MDRD) Af Amer 39 L, Est GFR (MDRD) Non-Af 32 L, BUN/Creatinine Ratio 21.1 H, Glucose 105, Calcium 8.8, Total Bilirubin 0.80, AST 33, ALT 21, Alkaline Phosphatase 104, Total Protein 7.4, Albumin 3.6, Globulin 3.8, Albumin/Globulin Ratio 0.9 04/18/18 16:20: Digoxin 0.47 L 04/18/18 17:28: Urine Color Yellow, Urine Clarity Clear, Urine pH 5.0, Ur Specific [place] 1.020, Urine Protein Negative, Urine Glucose (UA) Normal, Urine Ketones Negative, Urine Occult Blood Negative, Urine Nitrite Negative, Urine Bilirubin Negative, Urine Urobilinogen 1 H, Ur Leukocyte Esterase Negative, Urine RBC 0 SEEN, Urine WBC 0 SEEN, Ur Squamous Epith Cells 0-5 SEEN, Urine Bacteria 0 SEEN, Hyaline Casts 0-5 SEEN, Urine Mucus 0 SEEN 04/19/18 05:42: WBC 7.0, RBC 3.50 L, Hgb 9.8 L, Hct 32.1 L, MCV 91.7, MCH 28.0, MCHC 30.5 L, RDW 15.8 H, RDW Differential 51.5 H, Plt Count 200, MPV 10.1, Immature Gran % (Auto) 0.300, Neut % (Auto) 69.0, Lymph % (Auto) 17.5 L, [place] % (Auto) 12.6 H, Eos % (Auto) 0.3, Baso % (Auto) 0.3, Absolute Neuts (auto) 4.8, Absolute Lymphs (auto) 1.22, Total Counted Not Reportable 04/19/18 05:42: Sodium 144, Potassium 4.5, Chloride 107, Carbon Dioxide 27.0, Anion Gap 10, BUN 38 H, Creatinine 1.48 H, Estim Creat Clear Calc 21.73, Est GFR (MDRD) Af Amer 43 L, Est GFR (MDRD) Non-Af 36 L, BUN/Creatinine Ratio 25.7 H, Glucose 105, Calcium 8.3 L 04/19/18 05:42: Blood Type A POSITIVE, Antibody Screen NEGATIVE 04/19/18 05:42: Total Bilirubin 0.80, Direct Bilirubin 0.23, AST 26, ALT 17, Alkaline Phosphatase 81, Total Protein 6.0 L, Albumin 2.8 L, Globulin 3.2, TSH 1.10 Current Medications Acetaminophen (Tylenol) 650 mg PO TID PRN PRN PRN Reason: PAIN Last Admin: 04/19/18 05:05 Dose: 650 mg Aspirin (Aspirin, Baby) 81 mg PO DAILY@0800 COUNTS INCLUDE 234 BEDS AT THE [facility] Digoxin (Lanoxin) 62.5 mcg PO DAILY COUNTS INCLUDE 234 BEDS AT THE [facility] Docusate Sodium (Colace) 100 mg PO BID COUNTS INCLUDE 234 BEDS AT THE [facility] Last Admin: 04/18/18 21:37 Dose: Not Given Donepezil HCl (Aricept) 10 mg PO QHS COUNTS INCLUDE 234 BEDS AT THE [facility] Last Admin: 04/18/18 21:37 Dose: 10 mg Ferrous Sulfate (Ferrous Sulfate) 325 mg PO 1200,1700 COUNTS INCLUDE 234 BEDS AT THE [facility] Furosemide (Lasix) 40 mg PO DAILY COUNTS INCLUDE 234 BEDS AT THE [facility] Hydromorphone HCl (Dilaudid Inj) 0.5 - 1 mg IV Q4H PRN PRN PRN Reason: SEVERE PAIN (6-10/10) Sodium Chloride () 1,000 mls @ 75 mls/hr IV .[id number] COUNTS INCLUDE 234 BEDS AT THE [facility] Last Admin: 04/18/18 20:26 Dose: 75 mls/hr Levothyroxine Sodium (Synthroid) 75 mcg PO DAILY@0600 COUNTS INCLUDE 234 BEDS AT THE [facility] Last Admin: 04/19/18 05:05 Dose: 75 mcg Metoprolol Succinate (Toprol Xl (Beta Issa)) 25 mg PO DAILY COUNTS INCLUDE 234 BEDS AT THE [facility] Mirtazapine (Remeron) 7.5 mg PO QHS COUNTS INCLUDE 234 BEDS AT THE [facility] Last Admin: 04/18/18 21:37 Dose: 7.5 mg Nutritional Formula (Lactose Free) (Ensure Enlive) 120 ml PO 4X/DAY COUNTS INCLUDE 234 BEDS AT THE [facility] Ondansetron HCl (Zofran) 4 mg IV Q6H PRN PRN PRN Reason: NAUSEA Oxycodone HCl (Oxyir) 10 mg PO Q4H PRN PRN PRN Reason: SEVERE PAIN (6-10/10) Pantoprazole Sodium (Protonix) 20 mg PO DAILY COUNTS INCLUDE 234 BEDS AT THE [facility] Potassium Chloride (K-Dur) 20 [facility] Ramipril (Altace) 1.25 mg PO DAILY COUNTS INCLUDE 234 BEDS AT THE [facility] Sertraline HCl (Zoloft) 75 mg PO DAILY COUNTS INCLUDE 234 BEDS AT THE [facility] Sodium Chloride () 5 - 15 ml IV UD PRN PRN Reason: SALINE FLUSH Medical Necessity - Tobacco Use Smoking Status: Never smoker Tobacco Use: Non-smoker Assessment/Plan All Active Problems Hip fracture (Acute) Subtrochanteric fracture of left femur (Acute) Patient is an 82-year-old lady resident at an assisted living facility who apparently sustained a fall and did complain of left hip pain. Patient was brought to the emergency department where imaging studies demonstrated Acute displaced subtrochanteric/ intertrochanteric fracture of the left hip patient admitted to a regular nursing floor with consultation placed to orthopedic surgery. 1. Fall with Acute displaced subtrochanteric, intertrochanteric fracture of the left hip patient admitted to regular nursing floor currently managed with immobilization, pain medications and consultation placed to Dr. Conley with orthopedic surgery for surgical intervention. Patient risk for surgical intervention was assessed to be low moderate. He has underlying history of conduction system disorder with a pacemaker in place also has paroxysmal A. fib on Eliquis which was held 2. Dementia patient is on Aricept continued with supportive care 3. Conduction system disorder status post pacemaker placement 4. Chronic A. fib rate controlled on digoxin and metoprolol patient on Eliquis held in anticipation of her surgery 5. Hypertension-blood pressure controlled, home medications continued with dose adjustment as needed 6. Chronic kidney disease stage III kidney function appears to be at baseline 7. Chronic diastolic congestive heart failure stable 8. Hypothyroidism-patient is on levothyroxine home dose continued 9. DVT prophylaxis patient was on Eliquis prior to her admission held in anticipation of his surgery Active Medications Acetaminophen (Tylenol) 650 mg PO TID PRN PRN PRN Reason: PAIN Last Admin: 04/19/18 05:05 Dose: 650 mg Aspirin (Aspirin, Baby) 81 mg PO DAILY@0800 COUNTS INCLUDE 234 BEDS AT THE [facility] Digoxin (Lanoxin) 62.5 mcg PO DAILY COUNTS INCLUDE 234 BEDS AT THE [facility] Docusate Sodium (Colace) 100 mg PO BID COUNTS INCLUDE 234 BEDS AT THE [facility] Last Admin: 04/18/18 21:37 Dose: Not Given Donepezil HCl (Aricept) 10 mg PO QHS COUNTS INCLUDE 234 BEDS AT THE [facility] Last Admin: 04/18/18 21:37 Dose: 10 mg Ferrous Sulfate (Ferrous Sulfate) 325 mg PO 1200,1700 COUNTS INCLUDE 234 BEDS AT THE [facility] Furosemide (Lasix) 40 mg PO DAILY COUNTS INCLUDE 234 BEDS AT THE [facility] Hydromorphone HCl (Dilaudid Inj) 0.5 - 1 mg IV Q4H PRN PRN PRN Reason: SEVERE PAIN (6-10/10) Sodium Chloride () 1,000 mls @ 75 mls/hr IV .[id number] COUNTS INCLUDE 234 BEDS AT THE [facility] Last Admin: 04/18/18 20:26 Dose: 75 mls/hr Levothyroxine Sodium (Synthroid) 75 mcg PO DAILY@0600 COUNTS INCLUDE 234 BEDS AT THE [facility] Last Admin: 04/19/18 05:05 Dose: 75 mcg Metoprolol Succinate (Toprol Xl (Beta Issa)) 25 mg PO DAILY COUNTS INCLUDE 234 BEDS AT THE [facility] Mirtazapine (Remeron) 7.5 mg PO QHS COUNTS INCLUDE 234 BEDS AT THE [facility] Last Admin: 04/18/18 21:37 Dose: 7.5 mg Nutritional Formula (Lactose Free) (Ensure Enlive) 120 ml PO 4X/DAY COUNTS INCLUDE 234 BEDS AT THE [facility] Ondansetron HCl (Zofran) 4 mg IV Q6H PRN PRN PRN Reason: NAUSEA Oxycodone HCl (Oxyir) 10 mg PO Q4H PRN PRN PRN Reason: SEVERE PAIN (6-10/10) Pantoprazole Sodium (Protonix) 20 mg PO DAILY COUNTS INCLUDE 234 BEDS AT THE [facility] Potassium Chloride (K-Dur) 20 meq PO BIDCM COUNTS INCLUDE 234 BEDS AT THE [facility] Ramipril (Altace) 1.25 mg PO DAILY COUNTS INCLUDE 234 BEDS AT THE [facility] Sertraline HCl (Zoloft) 75 mg PO DAILY COUNTS INCLUDE 234 BEDS AT THE [facility] Sodium Chloride () 5 - 15 ml IV UD PRN PRN Reason: SALINE FLUSH Clinical Impression(s) from Imaging Studies Hip/Pelvis X-Ray 04/18/18 16:39 IMPRESSION: Acute displaced subtrochanteric/ intertrochanteric fracture of the left hip Electronically Signed: Everette Diez MD at 18:30 EST , Service support , Brain CT 04/18/18 16:40 IMPRESSION: Atrophy and moderate periventricular white matter ischemic changes. No evidence for acute intracranial bleed Electronically Signed: Everette Diez MD at 18:18 EST , Service support , Cervical Spine CT 04/18/18 16:40 IMPRESSION: No evidence for acute fracture or subluxation. Mild spondylosis Electronically Signed: Everette Diez MD at 18:26 EST , Service support , Chest X-Ray 04/18/18 16:40 IMPRESSION: No acute cardiopulmonary pathology Electronically Signed: Everette Diez MD at 18:27 EST , Service support , Code Visit Inpatient E&M: 92172 Subs Hosp L3
--- NOTE | 2018-04-19 08:48 | CASEMGMT ---
Social Work Note Per admissions recruiter questions pt has completed HCPOA and LW but hasn't provided [facility] with copy and pt is unable to bring in copies. Symone Soriano PLATE GAUGER, WEB SUPPORT ENGINEER
[2018-04-19] MEDS: 0.9% Normal Saline 1,000 ML 75 ML IV (09:06)
[2018-04-19] MEDS: Metoprolol(XL)Succ 25 MG Tablet PO (09:08)
[2018-04-19] MEDS: HYDROmorphone 1 MG/ML Syringe IV ×3 (09:16→17:38)
--- NOTE | 2018-04-19 11:02 | PCM.PN.BLA ---
Progress Note Advance planning; did discuss with the patient and family regarding advanced directives as well as CODE STATUS. Did explain the various scenarios involved ( FULL CODE, DNR CCA, DNR CCA with no intubation, and DNR CC and what each meant) patient elected to be DNR CCA no intubation. Patient will however revoke her DNR CCA no intubation status during surgery. Order was placed. Time spent on discussion 22 minutes. Code Visit Procedures: 46437 Advncd Care Plan 30 Min
--- NOTE | 2018-04-19 11:38 | CASEMGMT ---
Addendum entered by Symone Soriano 04/19/18 14:05: MERRY faxed updated clinicals to [facility] Original Note: Social Work Note Pt is being listed as being from [facility]. Per H+P pt does have a diagnosis of Dementia. Ortho has been consulted and pt is scheduled for surgery this afternoon. SW met with pt to confirm discharge plans. Pt's daughter Basia who is listed as pt's HCPOA is present in room. Pt gave this worker permission to speak to her in front of her guest. Pt and Basia confirm that pt is from [facility]. SW informed pt and pt's daughter that typically after a hip fracture, pt will need short term rehabilitation at SNF before returning to [facility]. Basia asked this worker about pt returning to [facility] with HHC. MERRY explained that is an option of it is recommended that pt would be safe to return with HHC. Basia states that if pt requires SNF she would pt to go to [facility] if possible. MERRY informed Basia that this worker will have to check to confirm if [facility] is in network with pt's insurance and if they have bed available. Basia gave this worker permission to make initial referral to [facility]. MERRY placed a call to Aissatou at [facility]. Per Aissatou [facility] is not in network with pt's insurance. MERRY placed a call to JUSTYNA Garcia at [facility]. Radha states that pt would be able to return to [facility] with HHC and the amount of HHC the pt would get depends on the need. MERRY in to update pt and pt's daughter Basia that [facility] is not in network with pt's insurance. MERRY also updated pt and pt's daughter Basia that this worker spoke with JUSTYNA Garcia at [place] who states pt would be able to return to [place] with HHC. MERRY provided Basia with list of in network facilities for pt. Basia mentioned [place] as both her and pt's other daughter Sonia live in [place]. Basia states that she will review list. SW informed pt and Basia that this worker will continue to follow along to assist with discharge planning. Plan: Pt to either return to [facility] with HHC vs. SNF Symone Soriano AUDIENCE DEVELOPMENT MANAGER, ELECTROMECHANICAL ENGINEER
[2018-04-19] MEDS: 0.9% NaCl Peripheral Flush Adult/Peds IV ×3 (12:44→19:06)
--- NOTE | 2018-04-19 13:10 | NURSING ---
call placed to pt's residency director's office, Dr.Brian Mas as not recieved [facility] return form. aware per physician's office that Dr. Mas is not available to sign the form. Had office fax over last office visit note. aware it is a [employer] pacer per their records but are unsure of the date of the last interegation. called and left a message for Leyla at their pacer clinic at [phone]. Called mckenna HERNANDEZ informed of situation. instructed to call Evin Abrams [employer] pacer rep for pre-OR (15:00) and postop pacer check. no answer at [phone] called [phone], Evin returned call and states pt follows with , [facility], and does home monitoring. aware per Evin they are to place a magnet for the surgery and postop check back be done by using the postop kit. states there are two kits one in PCU adn one in ER that they charge nurse can use, they are to use the dan kit and call him back if they have any questions. Katia HERNANDEZ charge nurse informed of above information. primary RN informed.
[2018-04-19] MEDS: HYDROmorphone 0.5 MG/0.5 ML SYRINGE IV (13:46)
--- NOTE | 2018-04-19 14:26 | NURSING ---
report called to kenzie bustamante rn in [place].
--- NOTE | 2018-04-19 16:32 | PCM.CONS.GEN ---
Reason for Consult Date of Consultation: 04/19/18 Reason for Consultation: left hip fracture History of Present Illness: The patient is a 82 year old F female with history of dementia who lives in assisted living presented to the emergency department last evening after being found down. Patient did not recall the events of the fall. She had left hip and thigh pain. She also had associated swelling. She is unable to give significant history. Her pain is increased with motion better with immobilization. She is able to wiggle her toes. Family states she does relatively well in assisted living. She has a history of atrial fibrillation is on Eliquis. Her last dose of Eliquis was yesterday morning. Past Medical History Past Medical History (Chronic Problems): Chronic Problems CHF (congestive heart failure) (Chronic) Afib (Chronic) CKD (chronic kidney disease) stage 3, GFR 30-59 ml/min (Chronic) Dementia (Chronic) Hypothyroidism (Chronic) Allergies diphenhydramine [From Benadryl] Allergy (Verified 04/18/18 16:19) Unknown flecainide Allergy (Verified 04/18/18 16:19) Unknown procainamide Allergy (Verified 04/18/18 16:19) Unknown tetanus toxoid, adsorbed Allergy (Verified 04/18/18 16:19) Unknown trimethobenzamide [From Tigan] Allergy (Verified 04/18/18 16:19) Unknown Home Medications: Ambulatory Orders Medication Instructions Recorded Apixaban [Eliquis] 2.5 mg PO BID 01/31/18 Calcium Carbonate/Vitamin D3 1 each PO BID 01/31/18 [Calcium 600 + Vit D Caplet] Furosemide [Lasix] 40 mg PO DAILY 01/31/18 Levothyroxine [Synthroid] 75 mcg PO DAILY 01/31/18 Melatonin 5 mg PO DAILY 01/31/18 Nitroglycerin [Nitrostat] 0.4 mg SL X1 PRN 01/31/18 Omeprazole [Prilosec] 20 mg PO DAILY 01/31/18 Potassium Chloride [K-Dur] 20 meq PO BID 01/31/18 Ramipril [Altace] 1.25 mg PO DAILY 01/31/18 hydrOXYzine tablet [Atarax tablet] 25 mg PO PRN PRN 01/31/18 Acetaminophen [Tylenol] 650 mg PO TID PRN PRN 04/18/18 Ammonium Lactate [Skin Treatment] 1 applic TP DAILY 04/18/18 Ascorbic Acid [Vitamin C] 500 mg PO BID 04/18/18 Aspirin [Aspirin, Baby] 81 mg PO DAILY@0800 04/18/18 Cholecalciferol (Vitamin D3) 400 unit PO DAILY 04/18/18 [Vitamin D3] Cyanocobalamin [Vitamin B12] 100 mcg IM Q30D 04/18/18 Digoxin [Digox] 62.5 mcg PO DAILY 04/18/18 Donepezil HCl 5 mg PO QHS 04/18/18 Ferrous Sulfate 325 mg PO BID 04/18/18 Metoprolol Succinate [Toprol Xl] 25 mg PO DAILY 04/18/18 Mirtazapine [Remeron] 7.5 mg PO DAILY 04/18/18 Sertraline HCl [Zoloft] 75 mg PO DAILY 04/18/18 traMADol [Ultram (G)] 50 mg PO Q6H PRN PRN 04/18/18 Surgical History: hysterectomy, - - pacemaker, bunionectomy Psychiatric History: Anxiety, Depression 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 Denies: Neck Pain Skin: Denies: Dryness Neurological: Denies: Blurred vision, Change in Speech Psychiatric: Reports: - - History of dementia. Denies: Anxiety Endocrine: Denies: Change in Body Habitus Hematologic/ Lymphatic: Denies: Petechiae Patient Problems: Active and Suspected Problems Hip fracture (Acute) Subtrochanteric fracture of left femur (Acute) Objective: CT scan of the cervical spine was reviewed no acute fractures were noted. X-ray of the chest was reviewed no acute fractures or dislocations were noted. Left hip x-rays were reviewed showing a displaced subtrochanteric fracture with flexion of the proximal fragment. - Physical Exam General: Alert, Cooperative HEENT: Atraumatic Neck: No JVD Extremities: - - Left lower extremity: Swollen tender left thigh. Skin clean, dry, and intact. Limb is shortened and externally rotated Motor is intact dorsiflexion, EHL and plantar flexion. Sensation is intact to light touch saphenous, azam,l superficial peroneal, deep peroneal and tibial distributions. Calves are soft and supple. Vital Signs Temp Pulse Resp BP Pulse Ox 98.3 F 67 16 138/110 H 100 04/19/18 16:26 04/19/18 16:26 04/19/18 16:26 04/19/18 16:26 04/19/18 16:26 Oxygen Flow Rate (L/min) 10 Oxygen Delivery Method Simple Mask Weight: 132 lb 7.965 oz Body Mass Index (BMI) 24.3 Intake and Output for Last 24 Hours 04/17/18 04/18/18 04/19/18 23:59 23:59 23:59 Intake Total 445 / 445 668 / 668 Output Total 100 / 100 200 / 200 Balance 345 / 345 468 / 468 Laboratory Tests Past 24 Hrs 04/18/18 04/18/18 04/18/18 16:20 16:20 16:20 WBC 6.3 RBC 4.47 Hgb 12.4 Hct 40.1 MCV 89.7 MCH 27.7 MCHC 30.9 L RDW 15.7 H RDW Differential 51.5 H Plt Count 218 MPV 10.0 Immature Gran % (Auto) 0.300 Neut % (Auto) 53.6 Lymph % (Auto) 32.8 Granite % (Auto) 10.1 H Eos % (Auto) 2.4 Baso % (Auto) 0.8 Absolute Neuts (auto) 3.4 Absolute Lymphs (auto) 2.08 Total Counted Not Reportable PT 13.5 INR 1.0 APTT 34.9 Sodium 141 Potassium 4.3 Chloride 105 Carbon Dioxide 26.0 Anion Gap 10 BUN 34 H Creatinine 1.61 H Estim Creat Clear Calc 20.94 Est GFR (MDRD) Af Amer 39 L Est GFR (MDRD) Non-Af 32 L BUN/Creatinine Ratio 21.1 H Glucose 105 Calcium 8.8 Total Bilirubin 0.80 Direct Bilirubin AST 33 ALT 21 Alkaline Phosphatase 104 Total Protein 7.4 Albumin 3.6 Globulin 3.8 Albumin/Globulin Ratio 0.9 TSH Urine Color Urine Clarity Urine pH Ur Specific [place] Urine Protein Urine Glucose (UA) Urine Ketones Urine Occult Blood Urine Nitrite Urine Bilirubin Urine Urobilinogen Ur Leukocyte Esterase Urine RBC Urine WBC Ur Squamous Epith Cells Urine Bacteria Hyaline Casts Urine Mucus Digoxin Blood Type Antibody Screen Crossmatch 04/18/18 04/18/18 04/19/18 16:20 17:28 05:42 WBC 7.0 RBC 3.50 L Hgb 9.8 L Hct 32.1 L MCV 91.7 MCH 28.0 MCHC 30.5 L RDW 15.8 H RDW Differential 51.5 H Plt Count 200 MPV 10.1 Immature Gran % (Auto) 0.300 Neut % (Auto) 69.0 Lymph % (Auto) 17.5 L Granite % (Auto) 12.6 H Eos % (Auto) 0.3 Baso % (Auto) 0.3 Absolute Neuts (auto) 4.8 Absolute Lymphs (auto) 1.22 Total Counted Not Reportable PT INR APTT Sodium Potassium Chloride Carbon Dioxide Anion Gap BUN Creatinine Estim Creat Clear Calc Est GFR (MDRD) Af Amer Est GFR (MDRD) Non-Af BUN/Creatinine Ratio Glucose Calcium Total Bilirubin Direct Bilirubin AST ALT Alkaline Phosphatase Total Protein Albumin Globulin Albumin/Globulin Ratio TSH Urine Color Yellow Urine Clarity Clear Urine pH 5.0 Ur Specific [place] 1.020 Urine Protein Negative Urine Glucose (UA) Normal Urine Ketones Negative Urine Occult Blood Negative Urine Nitrite Negative Urine Bilirubin Negative Urine Urobilinogen 1 H Ur Leukocyte Esterase Negative Urine RBC 0 SEEN Urine WBC 0 SEEN Ur Squamous Epith Cells 0-5 SEEN Urine Bacteria 0 SEEN Hyaline Casts 0-5 SEEN Urine Mucus 0 SEEN Digoxin 0.47 L Blood Type Antibody Screen Crossmatch 04/19/18 04/19/18 04/19/18 05:42 05:42 05:42 WBC RBC Hgb Hct MCV MCH MCHC RDW RDW Differential Plt Count MPV Immature Gran % (Auto) Neut % (Auto) Lymph % (Auto) Granite % (Auto) Eos % (Auto) Baso % (Auto) Absolute Neuts (auto) Absolute Lymphs (auto) Total Counted PT INR APTT Sodium 144 Potassium 4.5 Chloride 107 Carbon Dioxide 27.0 Anion Gap 10 BUN 38 H Creatinine 1.48 H Estim Creat Clear Calc 21.73 Est GFR (MDRD) Af Amer 43 L Est GFR (MDRD) Non-Af 36 L BUN/Creatinine Ratio 25.7 H Glucose 105 Calcium 8.3 L Total Bilirubin 0.80 Direct Bilirubin 0.23 AST 26 ALT 17 Alkaline Phosphatase 81 Total Protein 6.0 L Albumin 2.8 L Globulin 3.2 Albumin/Globulin Ratio TSH 1.10 Urine Color Urine Clarity Urine pH Ur Specific [place] Urine Protein Urine Glucose (UA) Urine Ketones Urine Occult Blood Urine Nitrite Urine Bilirubin Urine Urobilinogen Ur Leukocyte Esterase Urine RBC Urine WBC Ur Squamous Epith Cells Urine Bacteria Hyaline Casts Urine Mucus Digoxin Blood Type A POSITIVE Antibody Screen NEGATIVE Crossmatch 04/19/18 05:42 WBC RBC Hgb Hct MCV MCH MCHC RDW RDW Differential Plt Count MPV Immature Gran % (Auto) Neut % (Auto) Lymph % (Auto) Granite % (Auto) Eos % (Auto) Baso % (Auto) Absolute Neuts (auto) Absolute Lymphs (auto) Total Counted PT INR APTT Sodium Potassium Chloride Carbon Dioxide Anion Gap BUN Creatinine Estim Creat Clear Calc Est GFR (MDRD) Af Amer Est GFR (MDRD) Non-Af BUN/Creatinine Ratio Glucose Calcium Total Bilirubin Direct Bilirubin AST ALT Alkaline Phosphatase Total Protein Albumin Globulin Albumin/Globulin Ratio TSH Urine Color Urine Clarity Urine pH Ur Specific [place] Urine Protein Urine Glucose (UA) Urine Ketones Urine Occult Blood Urine Nitrite Urine Bilirubin Urine Urobilinogen Ur Leukocyte Esterase Urine RBC Urine WBC Ur Squamous Epith Cells Urine Bacteria Hyaline Casts Urine Mucus Digoxin Blood Type Antibody Screen Crossmatch See Detail Assessment/Plan All Active Problems Hip fracture (Acute) Subtrochanteric fracture of left femur (Acute) Patient has displaced flexed subtrochanteric hip fracture on the left. Treatment options were discussed with the patient. Ultimately I recommended cephalo-medullary nail. I discussed with the family the fracture pattern and then it may require a more open reduction and would be traditionally required by an intertrochanteric fracture. We discussed risks and benefits of the procedure which include but are not limited to blood loss, DVTs, PEs, neurovascular damage, infection, general risk of anesthesia, nonunion, malunion and hardware failure. We also discussed the risk of loss of life. Based on the patient's preoperative hemoglobin and use of Eliquis we discussed high risk of possible transfusion. We did discuss possible surgery today however based on recommendations from anesthesia and the medicine service it was felt 48 hours after her last dose of Eliquis would be a more adequate time for surgery. Based on the fracture pattern and patient's discomfort I discussed with the family placing the patient in traction. We discussed the risk of skeletal traction and skin traction at this time we have elected to place the patient in skin traction. Patient was given light sedation by anesthesia in the perioperative area which allowed for manipulation of the leg in a comfortable fashion. The foot was well-padded in skin traction was placed. We will start was 7 pounds of traction and increase it to 10 overnight. 2 g of Ancef have been ordered on-call to the operating room tomorrow. Patient will be made n.p.o. after midnight. She is okay to have a diet this evening. Will need to have power of prosecuting attorney signed consent based on patient's pain medications and mental status. [facility] Office:
--- NOTE | 2018-04-19 16:47 | CHAPLAIN ---
Type of Pastoral Visit _x__ Initial Visit ___ Follow-up Visit ___ On-call Visit ___ General Patient Visit ___ Spiritual Assessment ___ Family Conference ___ Bereavement ___ Rapid Response ___ Code Blue ___ Other (describe below) Pastoral Care Referral From _x__ Patient _x__ Family ___ Nurse ___ Physician ___ Construction Crew Member ___ Hand Tufter ___ Other (describe below) Sacrament/Intervention _x__ Active listening ___ Anointing ___ Mandaeism ___ Bereavement ___ Communion ___ Christel exploration ___ ___ Life review _x__ Prayer ___ Reconciliation ___ Sacrament of Sick _x__ Supportive presence ___ Wedding ___ Other (describe below) Pastoral Comments patient would like prayer before surgery and notification to her shinto about admission; both done by this credit compliance officer
--- NOTE | 2018-04-19 16:52 | PCA ---
pt off floor
[2018-04-19] MEDS: oxyCODONE 5 MG Tablet 10 MG PO (18:03)
[2018-04-19] MEDS: Ketorolac 15 MG/ML Vial IV (19:06)
--- NOTE | 2018-04-19 19:09 | PCA ---
pt off floor
--- NOTE | 2018-04-19 19:17 | NURSING ---
loosened ruth wrap slightly for the second time. toes are less purple and cool. cap refill improving. pt still extremely painful. x1 toradol iv given and switched the blankets under pts leg for a pillow. will continue to monitor.
--- NOTE | 2018-04-19 19:40 | NURSING ---
This nurse in to see pt during rounding. Noticed toes on left foot were purple and cold but mobile. Pt c/o numbness and severe pain. Inquired of day shift nurse and she stated that 'Dr. Conley was aware and stated to loosen the ruth wrap slightly'. Will continue to assess.
--- NOTE | 2018-04-19 20:16 | NURSING ---
pt off unit around 1435 via bed for surgery
--- NOTE | 2018-04-19 20:28 | NURSING ---
Pt is very uncomfortable. Daughter present in room. Belkis RN still here on MS3 so had her check foot with me. Toes on left foot are still slightly purple but she has good cap refill and is able to move her toes. Belkis and daughter both agree color is much better. Tried to reposition left LE for comfort. Traction still in place. Daughter states pt has dementia so she is having difficulty understanding this whole process also.
--- NOTE | 2018-04-19 20:33 | NURSING ---
pt arrived back to unit around 171. still painful, medicated w/dilaudid by michelet martinez rn. pt still tearful at 1800, oxyir given at this time. ruth wrap was loosened, x1 dose of toradol given 1899, ruth loosened again. after checking on pt per hs charge nurse request, pt still tearful, color of toes is much improved, still a little purple on bottoms but they are not as cold and has good cap refill now.
[2018-04-19] MEDS: Mirtazapine 15 MG Tablet 7.5 MG PO (21:06)
[2018-04-19] MEDS: Docusate Sodium 100 MG Capsule PO (21:06)
[2018-04-19] MEDS: Donepezil HCl 10 MG Tablet PO (21:06)
--- NOTE | 2018-04-19 21:40 | NURSING ---
Dr. Denis came to the floor after speaking with Dwayne JANSEN. Pt has been in extreme pain. Dr. Denis removed traction at this time and checked pt's pulses. Pt's pain much improved.
--- NOTE | 2018-04-19 21:45 | NURSING ---
Dr. Denis came to floor to assess pt's c/o pain and numbness. Removed 7 lb traction weight, CALVIN wrap and boot to assess for relief of pain, color and pulses. Pulses were faint but palpable. Used Doppler on left post. tib. Within 5 minutes pt appeared relieved of pain, left toes regained their natural skin tone and pulses increased strength. Pt fell asleep shortly after. Daughter at bedside.
[2018-04-20] VITALS (23 sets, daily range): BP systolic 85–151; BP diastolic 44–98; PULSE 66–112; RESP 14–18; TEMP 36.5–37.8; O2SAT 92–99; BMI 24.3; BMI 27.2
[2018-04-20] MEDS: 0.9% Normal Saline 1,000 ML 75 ML IV (03:14)
[2018-04-20 05:18] LABS: Hematocrit 29.5 % (37-47); Hemoglobin 9.1 g/dl (12.0-15.0); Mean Corp Hgb Conc 30.8 g/gl (32-36); Mean Corpuscular Hgb 28.6 pg (27.0-32.0); Mean Corpuscular Volume 92.8 fL (81-99); Mean Platelet Vol. 10.1 fl (6.2-12.0); Platelet Count 161 K/mm3 (150-450); RBC Distribution Width CV 15.8 % (11.6-14.6); RBC Distribution Width SD 51.4 fl (35.1-43.9); Red Blood Count 3.18 M/mm3 (4.2-5.4); White Blood Count 8.2 K/mm3 (4.4-11.0)
[2018-04-20 05:21] LABS: Scan Indicated on CBC? Y/N NO
[2018-04-20 05:32] LABS: Anion Gap 9 (5-15); BUN 35 mg/dL (7-18); BUN/Creat Ratio 29.9 RATIO (10-20); Calcium,Total 8.5 mg/dL (8.5-10.1); Chloride 111 mmol/L (98-107); Creatinine, Serum 1.17 mg/dL (0.55-1.02); EST Glomerular Filtration Rate 47 mL/min (>60); Est Glom Filt Rate - Afr Amer 57 mL/min (>60); Estimated Creatinine Clearance 27.49 ml/min; Glucose 107 mg/dL (74-106); Potassium 4.2 mmol/L (3.5-5.1); Sodium Level 148 mmol/L (136-145)
--- NOTE | 2018-04-20 05:55 | RAD_ITS ---
STUDY: X-RAY - LEFT FEMUR REASON FOR STUDY: Female, 82 years old. Intraoperative femur fracture fixation with intramedullary valarie TECHNIQUE: 12 fluoroscopic view(s) of the femur. 147.2 seconds of fluoroscopy time reported. COMPARISON: None. FINDINGS: 12 fluoroscopic images show intramedullary valarie spanning proximal femur fracture (evident on prior hip x-ray). Distal interlocking screws and femoral neck fixation screw noted. Displacement of the lesser trochanter remains unchanged. RAD/Femur Min 2 Views IMPRESSION: Fluoroscopic guidance for proximal/subtrochanteric femur fracture fixation, as above. Electronically Signed: Adam Stanley MD at 7:36 EST , Service support ,
[2018-04-20] MEDS: HYDROmorphone 1 MG/ML Syringe IV ×3 (06:27→19:53)
[2018-04-20] MEDS: Levothyroxine 75 MCG Tablet PO (06:27)
--- NOTE | 2018-04-20 08:16 | ECHOD_ITS ---
Reason For Study: CHF Procedure This was a 2D Doppler, Color Flow transthoracic echocardiogram. Patient scanned supine due to Lt leg fracture. Exam performed portable in patient room. Left Ventricle Normal LV size. Left ventricular systolic function is normal. The estimated ejection fraction is 60 %. Stage 1 diastolic dysfunction. No regional wall motion abnormalities noted. Right Ventricle Normal RV size. ICD or pacer leads identified within the right ventricle. Normal systolic function. Atria The left atrium is mildly enlarged. Normal right atrium. Mitral Valve There is moderate mitral annular calcification. Mild (1+) eccentric mitral valve insufficiency. Tricuspid Valve Normal tricuspid valve. Moderately severe (3+) tricuspid valve insufficiency. Severe pulmonary hypertension. Pulmonary artery systolic pressure is 78 mmHg. Aortic Valve Trisinus/trileaflet aortic valve. Mild focal aortic valve calcification. Peak aortic valve gradient 26 mmHg. Mean aortic valve gradient 12 mmHg. Mild to moderate aortic stenosis. Mild (1+) eccentric aortic valve insufficiency. Pulmonic Valve Normal pulmonic valve. Great Vessels Mildly dilated aortic root. The pulmonary artery is normal size. Normal inferior vena cava. Pericardium/Pleural No pericardial effusion. MMode/2D Measurements & Calculations LVIDd: 4.5 cm IVSd: 1.0 cm LVOT diam: 2.0 cm LVIDs: 3.2 cm LVPWd: 1.0 cm LVOT area: 3.1 cm2 RVDd: 5.3 cm FS: 28.3 % Ao root diam: 3.7 cm LAV(MOD-bp): 81.9 ml LVAd ap4: 21.2 cm2 LAV(MOD-bp) Indexed: 49.3 ml/m2 EDV(MOD-sp4): 55.9 ml LAV(MOD-sp2): 101.3 ml EDV(sp4-el): 57.0 ml LAV(MOD-sp4): 63.2 ml LVAs ap4: 11.3 cm2 ESV(MOD-sp4): 19.5 ml ESV(sp4-el): 19.1 ml EF(MOD-sp4): 65.2 % EF(sp4-el): 66.5 % SV(MOD-sp4): 36.5 ml SV(sp4-el): 37.9 ml LA A4 area: 22.2 cm2 LA dimension(2D): 5.8 cm RA A4 area: 24.8 cm2 Time Measurements MV dec time: 0.11 sec Doppler Measurements & Calculations MV E max alfie: 118.6 cm/sec Lat Peak E' Alfie: 11.5 cm/sec Med Peak E' Alfie: 5.6 cm/sec MV A max alfie: 92.7 cm/sec E/E' lat: 10.3 E/E' med: 21.1 MV E/A: 1.3 MV V2 max: 137.2 cm/sec MV P1/2t max alfie: 134.6 cm/sec Ao V2 max: 255.6 cm/sec MV max P.5 mmHg MV P1/2t: 76.5 msec Ao max P.1 mmHg MV V2 mean: 75.2 cm/sec Ao V2 mean: 167.3 cm/sec MV mean P.6 mmHg MV dec slope: 515.6 cm/sec2 Ao mean P.7 mmHg MV V2 VTI: 42.8 cm MVA(P1/2t): 2.9 cm2 Ao V2 VTI: 46.5 cm MVA(VTI): 1.8 cm2 STORMY(I,D): 1.6 cm2 STORMY(V,D): 1.6 cm2 AI max alfie: 380.3 cm/sec LV V1 max: 127.9 cm/sec SV(LVOT): 76.4 ml AI max P.9 mmHg LV V1 max P.5 mmHg LV V1 mean P.4 mmHg AI dec slope: 197.0 cm/sec2 LV V1 mean: 86.2 cm/sec AI P1/2t: 565.6 msec LV V1 VTI: 24.3 cm PA V2 max: 128.4 cm/sec PI end-d alfie: 105.3 cm/sec TR max alfie: 429.6 cm/sec TR max P.8 mmHg Interpretation Summary Normal LV size. Left ventricular systolic function is normal. The estimated ejection fraction is 60 %. Stage 1 diastolic dysfunction. The left atrium is mildly enlarged. Mild to moderate aortic stenosis. Severe pulmonary hypertension. Pulmonary artery systolic pressure is 78 mmHg. Ordering Physician: Neptali Vincent Performed By: Katia Clarke, UMER, RVT
--- NOTE | 2018-04-20 08:51 | PN_ITS ---
Patient Problems: Active and Suspected Problems Hip fracture (Acute) Subtrochanteric fracture of left femur (Acute) Subjective: Patient scheduled to undergo ORIF of left hip fracture. Patient surgery had to be postponed from 04/19/2018 to 04/20/2018 as a result of patient having received Eliquis the day prior Did experience significant pain pain only relieved following discontinuation of her traction. Objective: GENERAL: cooperative HEENT: Atraumatic; moist oral mucosa EYES; Anicteric, Normal Conjunctiva NECK; supple, normal thyroid, no distended JVD. RESPIRATORY: Diminished to auscultation bilaterally, CARDIOVASCULAR: Regular S1 S2, systolic murmurs GI: soft, non-tender, normoactive bowel sounds, : No Renal angle tenderness; EXTREMITIES: No edema, no clubbing, no cyanosis. NEURO: Awake; no lateralizing signs. SKIN: No Rash PSYCH; Normal affect Vitals/I&O's: Vital Signs Temp Pulse Resp BP Pulse Ox 99.7 F H 67 18 89/66 L 92 04/20/18 07:38 04/20/18 07:38 04/20/18 07:38 04/20/18 07:38 04/20/18 07:38 Oxygen Flow Rate (L/min) 2 Oxygen Delivery Method Room Air Weight: 60.1 kg Body Mass Index (BMI) 24.3 Intake and Output for Last 24 Hours 04/18/18 04/19/18 04/20/18 23:59 23:59 23:59 Intake Total 445 / 445 1268 / 1268 1347 / 1347 Output Total 100 / 100 800 / 800 450 / 450 Balance 345 / 345 468 / 468 897 / 897 Laboratory Results 04/19/18 05:42: Crossmatch See Detail 04/20/18 04:59: WBC 8.2, RBC 3.18 L, Hgb 9.1 L, Hct 29.5 L, MCV 92.8, MCH 28.6, MCHC 30.8 L, RDW 15.8 H, RDW Differential 51.4 H, Plt Count 161, MPV 10.1 04/20/18 04:59: Sodium 148 H, Potassium 4.2, Chloride 111 H, Carbon Dioxide 28.0, Anion Gap 9, BUN 35 H, Creatinine 1.17 H, Estim Creat Clear Calc 27.49, Est GFR (MDRD) Af Amer 57 L, Est GFR (MDRD) Non-Af 47 L, BUN/Creatinine Ratio 29.9 H, Glucose 107 H, Calcium 8.5 Current Medications Acetaminophen (Tylenol) 650 mg PO TID PRN PRN PRN Reason: PAIN Last Admin: 04/19/18 05:05 Dose: 650 mg Aspirin (Aspirin, Baby) 81 mg PO DAILY@0800 [facility] Last Admin: 04/20/18 07:45 Dose: Not Given Digoxin (Lanoxin) 62.5 mcg PO DAILY [facility] Last Admin: 04/19/18 19:53 Dose: Not Given Docusate Sodium (Colace) 100 mg PO BID [facility] Last Admin: 04/19/18 21:06 Dose: 100 mg Donepezil HCl (Aricept) 10 mg PO QHS [facility] Last Admin: 04/19/18 21:06 Dose: 10 mg Ferrous Sulfate (Ferrous Sulfate) 325 mg PO 1200,1700 [facility] Last Admin: 04/19/18 19:53 Dose: Not Given Furosemide (Lasix) 40 mg PO DAILY [facility] Last Admin: 04/19/18 19:53 Dose: Not Given Hydromorphone HCl (Dilaudid Inj) 0.5 - 1 mg IV Q4H PRN PRN PRN Reason: SEVERE PAIN (6-10/10) Last Admin: 04/20/18 06:27 Dose: 1 mg Sodium Chloride () 1,000 mls @ 75 mls/hr IV .[id number] [facility] Last Admin: 04/20/18 03:14 Dose: 75 mls/hr Levothyroxine Sodium (Synthroid) 75 mcg PO DAILY@0600 [facility] Last Admin: 04/20/18 06:27 Dose: 75 mcg Metoprolol Succinate (Toprol Xl (Beta Issa)) 25 mg PO DAILY [facility] Last Admin: 04/19/18 09:08 Dose: 25 mg Mirtazapine (Remeron) 7.5 mg PO QHS [facility] Last Admin: 04/19/18 21:06 Dose: 7.5 mg Nutritional Formula (Lactose Free) (Ensure Enlive) 120 ml PO 4X/DAY [facility] Last Admin: 04/19/18 21:51 Dose: 120 ml Ondansetron HCl (Zofran) 4 mg IV Q6H PRN PRN PRN Reason: NAUSEA Oxycodone HCl (Oxyir) 10 mg PO Q4H PRN PRN PRN Reason: SEVERE PAIN (6-10/10) Last Admin: 04/19/18 18:03 Dose: 10 mg Pantoprazole Sodium (Protonix) 20 mg PO DAILY [facility] Last Admin: 04/19/18 19:53 Dose: Not Given Potassium Chloride (K-Dur) 20 meq PO BIDCM [facility] Last Admin: 04/20/18 07:45 Dose: Not Given Ramipril (Altace) 1.25 mg PO DAILY [facility] Last Admin: 04/19/18 19:52 Dose: Not Given Sertraline HCl (Zoloft) 75 mg PO DAILY [facility] Last Admin: 04/19/18 19:53 Dose: Not Given Sodium Chloride () 5 - 15 ml IV UD PRN PRN Reason: SALINE FLUSH Last Admin: 04/19/18 19:06 Dose: 10 ml Medical Necessity - Tobacco Use Smoking Status: Never smoker Tobacco Use: Non-smoker Assessment/Plan All Active Problems Hip fracture (Acute) Subtrochanteric fracture of left femur (Acute) Patient is an 82-year-old lady resident at an assisted living facility who apparently sustained a fall and did complain of left hip pain. Patient was brought to the emergency department where imaging studies demonstrated Acute displaced subtrochanteric/ intertrochanteric fracture of the left hip patient admitted to a regular nursing floor with consultation placed to orthopedic surgery. 1. Fall with Acute displaced subtrochanteric, intertrochanteric fracture of the left hip patient admitted to regular nursing floor currently managed with immobilization, pain medications and consultation placed to Dr. Conley with orthopedic surgery for surgical intervention. He was scheduled for 04/20/2018 Patient risk for surgical intervention was assessed to be low moderate. She has underlying history of conduction system disorder with a pacemaker in place also has paroxysmal A. fib on Eliquis which was held 2. Dementia patient is on Aricept continued with supportive care 3. Conduction system disorder status post pacemaker placement 4. Chronic A. fib rate controlled on digoxin and metoprolol patient on Eliquis held in anticipation of her surgery 5. Hypertension-blood pressure controlled, home medications continued with dose adjustment as needed 6. Chronic kidney disease stage III kidney function appears to be at baseline 7. Chronic diastolic congestive heart failure stable 8. Hypothyroidism-patient is on levothyroxine home dose continued 9. DVT prophylaxis patient was on Eliquis prior to her admission held in anticipation of his surgery Code Visit Inpatient E&M: 60368 Subs Hosp L3
[2018-04-20] MEDS: 0.9% NaCl Peripheral Flush Adult/Peds IV (13:20)
--- NOTE | 2018-04-20 13:20 | CASEMGMT ---
Social Work note MERRY met with pt and pt's daughter Basia to confirm discharge plans. Basia states she would pt to go to [facility] for rehabilitation before returning to [facility]. MERRY explained referral process and that pre-cert will be needed so pt will likely be at [facility] over the weekend. MERRY placed a call to [facility] and spoke with Shruthi in admissions. Shruthi states she has female beds available and will review referral. MERRY faxed referral. MERRY received message from Shruthi stating she is able to accept pt and will need PT/OT notes Monday to submit for pre-cert. Pt is scheduled to have surgery today and no PT/OT notes are currently available. Plan: [facility] pending pre-cert. MERRY to fax PT/OT notes Monday. Symone Soriano MEDICAL APPLIANCE MAKER, SELF DEFENSE INSTRUCTOR
--- NOTE | 2018-04-20 15:34 | PCM.OPRPT ---
Report of Operation Date of Procedure: 04/20/18 Pre-Operative Diagnosis: Left hip subtrochanteric fracture, displaced Post-Operative Diagnosis: Left hip subtrochanteric fracture, displaced Surgery/Procedure Performed:: Cephalo-medullary nail left hip Description of Surgical Findings:: Stable hip reduction printing press machinist: Martita Sánchez Type of Anesthesia:: General Anesthesiologist: Neptali Vincent Special Medications: 2 Grams Ancef Estimated Blood Loss (mL): 250 Fluids Replaced: 900 mL crystalloid Description of Procedure: Components used: 1. [employer] InterTAN nail 20lco86.5 mm, 2. [employer] InterTAN subtroch lag screw 100mm 3. [employer] 45 millimeter interlocking screw Brief history operative indications: 82-year-old female with history of dementia and atrial fibrillation on Eliquis presented to the emergency department 48 hours ago with a displaced trochanteric left hip fracture. After extensive discussion including risk and benefits which include but are not limited to blood loss, PEs, DVTs, neurovascular damage, nonunions, malunions and screw cut out patient has elected to proceed with a left hip cephalo-medullary nail. We did wait 48 hours to reverse Eliquis. Procedure: On the date of the procedure the patient's l hip was marked in the preoperative area and patient was taken back to the operating room. Anesthetic was administered and patient was transferred to the table were all bony prominence identified well-padded and the ipsilateral arm was placed across the chest. Patient was then translated down to the perineal post and the operative leg was placed in the boot while the nonoperative leg was lowered and secured. The operative leg was placed in traction and internal rotation and live fluoroscopy was used to verify adequate reduction. On the fracture pattern we cannot obtain an adequate reduction. At this point we elected to do an open reduction intraoperatively. The operative leg was then prepped in a sterile fashion with chlorhexidine while the surgeon scrubbed. Upon reentering the room the operative extremity was draped in the standard orthopedic fashion. Skin incision was marked and a timeout was called. Everyone agreed upon the side, the site, the procedure be performed, patient's identity, and antibiotics given. Initial skin incision was then made over the fracture site using x-ray to verify the appropriate position of the incision. We then dissected down to the fracture. Once the proximal distal fracture fragments were identified the fracture was manipulated and reduced using a Lambert. Once it was adequately reduced clamp was placed around the fracture. Once were happy with our fracture reduction we then proceeded to the intramedullary nail portion of the procedure. Skin incision was made and the position of the entry guidepin was verified using live fluoroscopy. Once we were satisfied with our position the pin was advanced in the soft tissue protector was placed over the pin. The entry reamer was then advanced into the proximal portion of the femur. A guidewire was placed down the intramedullary canal and fluoroscopy was used to verify that the anterior cortex had not been breached distally as well as satisfactory distal positioning. We then used live fluoroscopy to verify the length of the nail and a [employer] InterTAN 36cm by 11.5 mm 125 hip nail was selected. The 13 mm reamer was then passed. The nail was then attached to the salon supervisor and inserted into the intramedullary canal. The appropriate depth was verified. The lag screw guidepin was then placed under live fluoroscopy and when a satisfactory position was obtained the length of the screw was measured and the standard technique to drill for the lag screws was performed. The anti-rotation bar was used. At this time a 100 lag screw was selected with its corresponding compression screw. The lag screw was then passed and traction was left off the leg. The set screw was then tightened down. The final position of the lag screw was verified under fluoroscopy. Attention was then turned to the distal portion of the nail and a perfect [place] technique was used to locate the distal interlocking screw and a []mm distal interlocking screw was placed using this technique. Live fluoroscopy was used to verify the position of the interlocking screw and the final position of the hip components. Once we were satisfied with our positioning the wounds were copiously irrigated out with normal saline skin was closed with 2-0 Vicryl and ann for final skin closure. A sterile dressing was placed with Xeroform. Patient was then awakened by anesthesia transferred from the fracture table back to their hospital bed and transferred to the PACU for recovery. Postoperative plan: Patient will be weight-bear as tolerated. Okay to resume Eliquis tomorrow for DVT prophylaxis with knee-high stockings. Follow up in the office in 2 weeks. Grafts/Implants Used: [employer] InterTAN - Complications none - Admit VTE Documentation VTE Present on Admission: No VTE Mechan Device Prophylaxis: SCD's, Thigh High [place] Hose VTE Pharm Prophylaxis ordered?: Yes
--- NOTE | 2018-04-20 15:37 | OP.PCM_ITS ---
Report of Operation Date of Procedure: 04/20/18 Pre-Operative Diagnosis: Left hip subtrochanteric fracture, displaced Post-Operative Diagnosis: Left hip subtrochanteric fracture, displaced Surgery/Procedure Performed:: Cephalo-medullary nail left hip Description of Surgical Findings:: Stable hip reduction director of compensation: Martita Sánchez Type of Anesthesia:: General Anesthesiologist: Neptali Vincent Special Medications: 2 Grams Ancef Estimated Blood Loss (mL): 250 Fluids Replaced: 900 mL crystalloid Description of Procedure: Components used: 1. [employer] InterTAN nail 35ofc09.5 mm, 2. [employer] InterTAN subtroch lag screw 100mm 3. [employer] 45 millimeter interlocking screw Brief history operative indications: 82-year-old female with history of dementia and atrial fibrillation on Eliquis presented to the emergency department 48 hours ago with a displaced trochanteric left hip fracture. After extensive discussion including risk and benefits which include but are not limited to blood loss, PEs, DVTs, neurovascular damage, nonunions, malunions and screw cut out patient has elected to proceed with a left hip cephalo-medullary nail. We did wait 48 hours to reverse Eliquis. Procedure: On the date of the procedure the patient's l hip was marked in the preoperative area and patient was taken back to the operating room. Anesthetic was administered and patient was transferred to the table were all bony prominence identified well-padded and the ipsilateral arm was placed across the chest. Patient was then translated down to the perineal post and the operative leg was placed in the boot while the nonoperative leg was lowered and secured. The operative leg was placed in traction and internal rotation and live fluoroscopy was used to verify adequate reduction. On the fracture pattern we cannot obtain an adequate reduction. At this point we elected to do an open reduction intraoperatively. The operative leg was then prepped in a sterile fashion with chlorhexidine while the surgeon scrubbed. Upon reentering the room the operative extremity was draped in the standard orthopedic fashion. Skin incision was marked and a timeout was called. Everyone agreed upon the side, the site, the procedure be performed, patient's identity, and antibiotics given. Initial skin incision was then made over the fracture site using x-ray to verify the appropriate position of the incision. We then dissected down to the fracture. Once the proximal distal fracture fragments were identified the fracture was manipulated and reduced using a Lambert. Once it was adequately reduced clamp was placed around the fracture. Once were happy with our fracture reduction we then proceeded to the intramedullary nail portion of the procedure. Skin incision was made and the position of the entry guidepin was verified using live fluoroscopy. Once we were satisfied with our position the pin was advanced in the soft tissue protector was placed over the pin. The entry reamer was then advanced into the proximal portion of the femur. A guidewire was placed down the intramedullary canal and fluoroscopy was used to verify that the anterior cortex had not been breached distally as well as satisfactory distal positioning. We then used live fluoroscopy to verify the length of the nail and a [employer] InterTAN 36cm by 11.5 mm 125 hip nail was selected. The 13 mm reamer was then passed. The nail was then attached to the setter helper and inserted into the intramedullary canal. The appropriate depth was verified. The lag screw guidepin was then placed under live fluoroscopy and when a satisfactory position was obtained the length of the screw was measured and the standard technique to drill for the lag screws was performed. The anti-rotation bar was used. At this time a 100 lag screw was selected with its corresponding compression screw. The lag screw was then passed and traction was left off the leg. The set screw was then tightened down. The final position of the lag screw was verified under fluoroscopy. Attention was then turned to the distal portion of the nail and a perfect [place] technique was used to locate the distal interlocking screw and a []mm distal interlocking screw was placed using this technique. Live fluoroscopy was used to verify the position of the interlocking screw and the final position of the hip components. Once we were satisfied with our positioning the wounds were copiously irrigated out with normal saline skin was closed with 2-0 Vicryl and ann for final skin closure. A sterile dressing was placed with Xeroform. Patient was then awakened by anesthesia transferred from the fracture table back to their hospital bed and transferred to the PACU for recovery. Postoperative plan: Patient will be weight-bear as tolerated. Okay to resume Eliquis tomorrow for DVT prophylaxis with knee-high stockings. Follow up in the office in 2 weeks. Grafts/Implants Used: [employer] InterTAN - Complications none - Admit VTE Documentation VTE Present on Admission: No VTE Mechan Device Prophylaxis: SCD's, Thigh High [place] Hose VTE Pharm Prophylaxis ordered?: Yes
--- NOTE | 2018-04-20 17:05 | RAD_ITS ---
STUDY: X-RAY - LEFT HIP REASON FOR EXAM: Female, 82 years old. Left femur fracture fixation TECHNIQUE: 2 views of the hip. AP pelvis COMPARISON: None. FINDINGS: Right hip is normally aligned. Left proximal femur fracture has been surgically fixated with intramedullary valarie. Distal interlocking screw and femoral neck fixation screw identified. Medial displacement of the lesser trochanter is again noted. Normal acetabulum. Normal hip joint. Pelvic ring is intact. Old left obturator ring fractures noted. Pubic symphysis and sacroiliac joints are unremarkable. RAD/Hip Min 2 Views (Portable) IMPRESSION: 1. Radiographic alignment of left proximal femur fracture following IM valarie fixation 2. Old left obturator ring fracture. Electronically Signed: Adam Stanley MD at 8:26 EST , Service support ,
[2018-04-20] MEDS: Cefazolin 1 GM/50 ML BAG IV (22:14)
[2018-04-20] MEDS: Docusate Sodium 100 MG Capsule PO (22:18)
[2018-04-20] MEDS: Mirtazapine 15 MG Tablet 7.5 MG PO (22:18)
[2018-04-20] MEDS: Donepezil HCl 10 MG Tablet PO (22:18)
[2018-04-21] VITALS (25 sets, daily range): BP systolic 88–137; BP diastolic 44–72; PULSE 65–130; RESP 15–22; TEMP 36.4–37.9; O2SAT 97–100; BMI 27.2
[2018-04-21] MEDS: HYDROmorphone 1 MG/ML Syringe IV (02:28)
[2018-04-21] MEDS: Acetaminophen 325 MG Tablet 650 MG PO ×2 (03:55→13:02)
[2018-04-21] MEDS: Cefazolin 1 GM/50 ML BAG IV (05:59)
--- NOTE | 2018-04-21 06:39 | EKG12_ITS ---
Test Reason : DYSRHYTMIA Blood Pressure : / mmHG Vent. Rate : 113 BPM Atrial Rate : 113 BPM P-R Int : 088 ms QRS Dur : 112 ms QT Int : 364 ms P-R-T Axes : 000 -61 137 degrees QTc Int : 499 ms Sinus tachycardia with short OR Left axis deviation Septal infarct , age undetermined Inferior infarct , age undetermined Abnormal ECG Confirmed by ELOISA KILLIAN, ROMEO ([id number]), image editor CONNIE DANIELS ([id number]) on 04/25/2018 2:25:32 PM Referred By: MACIE Confirmed By:ROMEO AMIN MD
--- NOTE | 2018-04-21 06:50 | NURSING ---
Placed in reverse trendelenburg to promote increased BP
--- NOTE | 2018-04-21 06:52 | NURSING ---
STAT EKG OBTAINED THIS AM FOR TACHYCARDIA, HR 116-140. EKG = STACH. REMAINS AFEBRILE. HIGHEST ORAL TEMP 100.3 THIS SHIFT. TYLENOL GIVEN @ 0400 & EFFECTIVE. URINE OUTPUT 250 CC THIS AM AND BP 95/50. DR CORNELIUS AWARE.
--- NOTE | 2018-04-21 07:12 | PCM.PN.BLA ---
Progress Note Covering hospitalist: Called to see a pt with tachycardia and hypotension. She is post op day # 1, S/P repair of L hip fracture.......she had surgery postponed for a day due to being on Eliquis. Past medical history is positive for congestive heart failure, atrial fibrillation, chronic renal failure stage III, status post pacemaker implantation, dementia and hypothyroidism. Medication list was reviewed. All events of the past 24 hours of been reviewed. Tmax 100.3 ?F at 230 this a.m. Current blood pressure 89/53. She is 98% saturated on a 2 L nasal cannula. All lab was personally reviewed. Hemoglobin on 04/20/2018 was 9.1. EKG was obtained and shows sinus tachycardia with no ischemic ST or T wave changes. Patient denies chest pain, shortness of breath. She does feel very thirsty. She has been on a maintenance IV of normal saline at 75 cc per hour. Lying in rev trendelenberg when I entered the room. She is not tachypneic and breathing is not labored. She denies any CP, COB, lightheadedness. Pale MM very dry Lungs - CTA anterior and lateral H- No MM, tachycardic, regular, no gallop + JVD but, lying in rev trendelenberg Abd -soft, NT, ND, +BS's dressing is dry Impressions 1. Hypotension - suspect due to dehydration and possibly blood loss 2. tachycardia - regular 3. hx of AF 4. hx of PM 5. CRF-stage III?4 6. Hypernatremia 7. Anemia -was transfused with 2 units of packed red blood cells during this admission 8. Chronic anticoagulation with Eliquis for atrial fibrillation NS 500 cc bolus Stat CBC, BMP, MAG, dig level Type and cross 2 additional units of packed red blood cells and transfuse 1 now Code Visit Inpatient E&M: 70618 Subs Hosp L3
--- NOTE | 2018-04-21 07:35 | PN_ITS ---
Patient Problems: Active and Suspected Problems Hip fracture (Acute) Subtrochanteric fracture of left femur (Acute) Subjective: Underwent ORIF on 04/20/2018. Patient was found to be hypotensive with tachycardia this a.m. with significant drop in hemoglobin. She did receive fluid resuscitation in addition to 1 unit PRBC transfusion. Objective: GENERAL: Appears pale HEENT: Atraumatic; moist oral mucosa EYES; Anicteric, Normal Conjunctiva NECK; supple, normal thyroid, no distended JVD. RESPIRATORY: Diminished to auscultation bilaterally, CARDIOVASCULAR: Regular S1 S2, systolic murmurs GI: soft, non-tender, normoactive bowel sounds, : No Renal angle tenderness; EXTREMITIES: Left tHIGH incision dry and intact NEURO: Awake; no lateralizing signs. SKIN: No Rash PSYCH; Vitals/I&O's: Vital Signs Temp Pulse Resp BP Pulse Ox 97.6 F L 127 H 22 H 96/67 99 04/21/18 07:29 04/21/18 07:29 04/21/18 07:29 04/21/18 07:29 04/21/18 07:29 Oxygen Flow Rate (L/min) 2 Oxygen Delivery Method Nasal Cannula Weight: 60.1 kg Body Mass Index (BMI) 24.3 Intake and Output for Last 24 Hours 04/19/18 04/20/18 04/21/18 23:59 23:59 23:59 Intake Total 1268 / 1268 3197 / 3197 1040 / 1040 Output Total 800 / 800 890 / 890 350 / 350 Balance 468 / 468 2307 / 2307 690 / 690 Laboratory Results 04/19/18 05:42: Crossmatch See Detail Current Medications Acetaminophen (Tylenol) 650 mg PO TID PRN PRN PRN Reason: PAIN Last Admin: 04/21/18 03:55 Dose: 650 mg Aspirin (Aspirin, Baby) 81 mg PO DAILY@0800 [facility] Last Admin: 04/20/18 07:45 Dose: Not Given Digoxin (Lanoxin) 62.5 mcg PO DAILY [facility] Last Admin: 04/20/18 11:18 Dose: Not Given Docusate Sodium (Colace) 100 mg PO BID [facility] Last Admin: 04/20/18 22:18 Dose: 100 mg Donepezil HCl (Aricept) 10 mg PO QHS [facility] Last Admin: 04/20/18 22:18 Dose: 10 mg Ferrous Sulfate (Ferrous Sulfate) 325 mg PO 1200,1700 [facility] Last Admin: 04/20/18 17:46 Dose: Not Given Furosemide (Lasix) 40 mg PO DAILY [facility] Last Admin: 04/20/18 11:18 Dose: Not Given Hydromorphone HCl (Dilaudid Inj) 0.5 - 1 mg IV Q4H PRN PRN PRN Reason: SEVERE PAIN (6-10/10) Last Admin: 04/21/18 02:28 Dose: 1 mg Sodium Chloride () 1,000 mls @ 75 mls/hr IV .[id number] [facility] Last Admin: 04/20/18 03:14 Dose: 75 mls/hr Sodium Chloride () 500 mls @ 999 mls/hr IV .Q31M ONE Stop: 04/21/18 07:40 Last Admin: 04/21/18 07:10 Dose: 999 mls/hr Levothyroxine Sodium (Synthroid) 75 mcg PO DAILY@0600 [facility] Last Admin: 04/21/18 07:20 Dose: Not Given Metoprolol Succinate (Toprol Xl (Beta Issa)) 25 mg PO DAILY [facility] Last Admin: 04/20/18 11:18 Dose: Not Given Mirtazapine (Remeron) 7.5 mg PO QHS [facility] Last Admin: 04/20/18 22:18 Dose: 7.5 mg Nutritional Formula (Lactose Free) (Ensure Enlive) 120 ml PO 4X/DAY [facility] Last Admin: 04/20/18 22:14 Dose: 120 ml Ondansetron HCl (Zofran) 4 mg IV Q6H PRN PRN PRN Reason: NAUSEA Oxycodone HCl (Oxyir) 10 mg PO Q4H PRN PRN PRN Reason: SEVERE PAIN (6-10/10) Last Admin: 04/19/18 18:03 Dose: 10 mg Pantoprazole Sodium (Protonix) 20 mg PO DAILY [facility] Last Admin: 04/20/18 11:18 Dose: Not Given Potassium Chloride (K-Dur) 20 meq PO BIDCM [facility] Last Admin: 04/20/18 17:46 Dose: Not Given Ramipril (Altace) 1.25 mg PO DAILY [facility] Last Admin: 04/20/18 11:19 Dose: Not Given Sertraline HCl (Zoloft) 75 mg PO DAILY [facility] Last Admin: 04/20/18 11:19 Dose: Not Given Sodium Chloride () 5 - 15 ml IV UD PRN PRN Reason: SALINE FLUSH Last Admin: 04/20/18 13:20 Dose: 10 ml Medical Necessity - Tobacco Use Smoking Status: Never smoker Tobacco Use: Non-smoker Assessment/Plan All Active Problems Hip fracture (Acute) Subtrochanteric fracture of left femur (Acute) Patient is an 82-year-old lady resident at an assisted living facility who apparently sustained a fall and did complain of left hip pain. Patient was brought to the emergency department where imaging studies demonstrated Acute di splaced subtrochanteric/ intertrochanteric fracture of the left hip patient admitted to a regular nursing floor with consultation placed to orthopedic surgery. 1. Fall with Acute displaced subtrochanteric, intertrochanteric fracture of the left hip patient admitted to regular nursing floor currently managed with immobilization, pain medications and consultation placed to Dr. Conley with orthopedic surgery for surgical intervention. Patient underwent Cephalo- medullary nail left hip 2. Symptomatic anemia patient was transfused with 1 unit PRBC on the morning of 04/21/2013 3. Conduction system disorder status post pacemaker placement 4. Chronic A. fib rate controlled on digoxin and metoprolol patient on Eliquis held in anticipation of her surgery. With patient significant anemia resumption of Eliquis was held for additional day 5. Hypertension-blood pressure controlled, home medications continued with dose adjustment as needed 6. Chronic kidney disease stage III kidney function appears to be at baseline 7. Chronic diastolic congestive heart failure stable 8. Hypothyroidism-patient is on levothyroxine home dose continued 9. Dementia patient is on Aricept continued with supportive care 10. DVT prophylaxis patient was on Eliquis prior to her admission held in anticipation of his surgery Code Visit Inpatient E&M: 81044 [facility] Hosp L3
[2018-04-21 07:49] LABS: Absolute Lymphocyte Count 1.19 X10^3/ul (0.83-4.51); Absolute Neutrophil Count 6.4 X10^3/uL (2.0-7.7); Basophil# 0.02 X10^3/uL; Basophil% 0.2 % (0-1); Eosinophil# 0.01 X10^3/uL; Eosinophils% 0.1 % (0-5); Hematocrit 25.7 % (37-47); Hemoglobin 7.9 g/dl (12.0-15.0); Lymphocyte # 1.19 X10^3/ul (4.0); Lymphocyte % 13.3 % (19-41); Mean Corp Hgb Conc 30.7 g/gl (32-36); Mean Corpuscular Hgb 28.7 pg (27.0-32.0); Mean Corpuscular Volume 93.5 fL (81-99); Mean Platelet Vol. 9.6 fl (6.2-12.0); Monocyte# 1.28 X10^3/uL; Monocyte% 14.3 % (0-10); Neutrophil # 6.43 X10^3/uL (2.7-7.7); Neutrophil % 71.8 % (47-70); Platelet Count 147 K/mm3 (150-450); RBC Distribution Width SD 52.5 fl (35.1-43.9); Red Blood Count 2.75 M/mm3 (4.2-5.4)
[2018-04-21 07:50] LABS: POSITIVE COUNT NO; POSITIVE DIFFERENTIAL NO; POSITIVE MORPHOLOGY NO
[2018-04-21 08:16] LABS: Anion Gap 7 (5-15); BUN 24 mg/dL (7-18); BUN/Creat Ratio 24.9 RATIO (10-20); Calcium,Total 8.2 mg/dL (8.5-10.1); Chloride 116 mmol/L (98-107); Creatinine, Serum 0.96 mg/dL (0.55-1.02); EST Glomerular Filtration Rate 59 mL/min (>60); Est Glom Filt Rate - Afr Amer 71 mL/min (>60); Estimated Creatinine Clearance 33.51 ml/min; Glucose 111 mg/dL (74-106); Magnesium 2.2 mg/dL (1.6-2.6); Potassium 4.1 mmol/L (3.5-5.1); Sodium Level 150 mmol/L (136-145)
[2018-04-21 08:35] LABS: Digoxin Level 0.34 ng/mL (0.80-2.00)
--- NOTE | 2018-04-21 08:36 | NURSING ---
Addendum entered by Clary Ashley 04/21/18 10:45: Daughter Sonia states that patient always has a very low b/p- she believes 90's /50-60. Original Note: daughter and POA Sonia called and notified of lining strap closer changes and new order for PRBC- prior to initiation. Understanding verbalized. States she will contact other sister who is an RN to notify her as well. This RN gave work cell number so they could contact if have any further questions.
[2018-04-21] MEDS: Pantoprazole Sodium 20 MG Tablet PO (08:48)
[2018-04-21] MEDS: Aspirin 81 MG TAB.CHEW PO (08:48)
[2018-04-21] MEDS: Sertraline 50 MG Tablet 75 MG PO (08:48)
[2018-04-21] MEDS: Digoxin 125 MCG Tablet 62.5 MCG PO (08:51)
--- NOTE | 2018-04-21 08:55 | PN.ORTHO_ITS ---
Patient Problems: Active and Suspected Problems Hip fracture (Acute) Subtrochanteric fracture of left femur (Acute) Subjective: The patient was sitting in bed upon examination. Patient denies any chest pain, shortness of breath, nausea or vomiting, or calf pain. Pain is controlled on medications. Patient does report pain in left hip. No adverse overnight events. Patient did have episodes of hypotension and tachycardia. Medicine is actually transfusing patient with 2 units of packed red blood cells today. Objective: Hypotensive and tachycardic and afebrile. Patient is able to plantarflex and dorsiflex actively. Sensation is intact to light touch to saphenous, sural, superficial and deep per morrison, and tibial distribution. Dressing is clean dry and intact. Negative Homans bilaterally, negative signs and symptoms of DVT. - Physical Exam General: Alert, Oriented x3, Cooperative Vital Signs Temp Pulse Resp BP Pulse Ox 98 F 76 18 88/49 L 100 04/21/18 08:09 04/21/18 08:09 04/21/18 08:09 04/21/18 08:09 04/21/18 08:09 Oxygen Flow Rate (L/min) 2 Oxygen Delivery Method Nasal Cannula Weight: 60.1 kg Body Mass Index (BMI) 24.3 Intake and Output for Last 24 Hours 04/19/18 04/20/18 04/21/18 23:59 23:59 23:59 Intake Total 1268 / 1268 3197 / 3197 1040 / 1040 Output Total 800 / 800 890 / 890 350 / 350 Balance 468 / 468 2307 / 2307 690 / 690 Laboratory Tests Past 24 Hrs 04/19/18 04/19/18 04/21/18 05:42 05:42 07:37 WBC 9.0 RBC 2.75 L Hgb 7.9 L Hct 25.7 L MCV 93.5 MCH 28.7 MCHC 30.7 L RDW 16.0 H RDW Differential 52.5 H Plt Count 147 L MPV 9.6 Immature Gran % (Auto) 0.300 Neut % (Auto) 71.8 H Lymph % (Auto) 13.3 L [place] % (Auto) 14.3 H Eos % (Auto) 0.1 Baso % (Auto) 0.2 Absolute Neuts (auto) 6.4 Absolute Lymphs (auto) 1.19 Total Counted Not Reportable Sodium Potassium Chloride Carbon Dioxide Anion Gap BUN Creatinine Estim Creat Clear Calc Est GFR (MDRD) Af Amer Est GFR (MDRD) Non-Af BUN/Creatinine Ratio Glucose Calcium Magnesium Digoxin Crossmatch See Detail See Detail 04/21/18 04/21/18 07:37 07:37 WBC RBC Hgb Hct MCV MCH MCHC RDW RDW Differential Plt Count MPV Immature Gran % (Auto) Neut % (Auto) Lymph % (Auto) [place] % (Auto) Eos % (Auto) Baso % (Auto) Absolute Neuts (auto) Absolute Lymphs (auto) Total Counted Sodium 150 H Potassium 4.1 Chloride 116 H Carbon Dioxide 27.0 Anion Gap 7 BUN 24 H Creatinine 0.96 Estim Creat Clear Calc 33.51 Est GFR (MDRD) Af Amer 71 Est GFR (MDRD) Non-Af 59 L BUN/Creatinine Ratio 24.9 H Glucose 111 H Calcium 8.2 L Magnesium 2.2 Digoxin 0.34 L Crossmatch Medical Necessity - Tobacco Use Smoking Status: Never smoker Tobacco Use: Non-smoker Assessment/Plan All Active Problems Hip fracture (Acute) Subtrochanteric fracture of left femur (Acute) 1. S/P left hip cephalo-medullary nail POD #1 2. Continue Pain Medications: Tylenol and OxyIR 3. DVT Prophylaxis: Patient has been on Eliquis prior to surgery. Postoperative DVT prophylaxis per medicine 4. PT/OT: Weightbearing as tolerated 5. Anemia: H & H currently 7.9/25.7, asymptomatic 6. Encouraged Incentive Spirometry 7. Continue postoperative medical management per medicine 8. Disposition: Plan will be for discharge to [facility] once medically stable. Patient will need 2-week follow-up with [facility]. Continue pain medications and DVT prophylaxis per medicine.
[2018-04-21] MEDS: Furosemide 40 MG Tablet PO (09:30)
[2018-04-21] MEDS: 0.9% NaCl Peripheral Flush Adult/Peds IV ×3 (13:10→22:45)
[2018-04-21] MEDS: Morphine 2 MG/ML Syringe IV ×2 (16:35→22:44)
[2018-04-21] MEDS: Ondansetron 4 MG/2 ML Vial IV (22:46)
[2018-04-22] VITALS (12 sets, daily range): BP systolic 104–118; BP diastolic 51–60; PULSE 68–85; RESP 16–20; TEMP 36.6–37.2; O2SAT 96–98
[2018-04-22] MEDS: 0.9% NaCl Peripheral Flush Adult/Peds IV (02:24)
[2018-04-22] MEDS: Morphine 2 MG/ML Syringe IV (02:25)
[2018-04-22 07:00] LABS: Hematocrit 26.5 % (37-47); Hemoglobin 8.6 g/dl (12.0-15.0); Mean Corp Hgb Conc 32.5 g/gl (32-36); Mean Corpuscular Volume 92.3 fL (81-99); Mean Platelet Vol. 10.3 fl (6.2-12.0); Platelet Count 143 K/mm3 (150-450); RBC Distribution Width CV 15.9 % (11.6-14.6); RBC Distribution Width SD 51.7 fl (35.1-43.9); Red Blood Count 2.87 M/mm3 (4.2-5.4); White Blood Count 7.8 K/mm3 (4.4-11.0)
[2018-04-22 07:01] LABS: Scan Indicated on CBC? Y/N NO
[2018-04-22 07:25] LABS: Anion Gap 9 (5-15); BUN 20 mg/dL (7-18); BUN/Creat Ratio 24.6 RATIO (10-20); Calcium,Total 8.3 mg/dL (8.5-10.1); Chloride 110 mmol/L (98-107); Creatinine, Serum 0.81 mg/dL (0.55-1.02); EST Glomerular Filtration Rate 71 mL/min (>60); Est Glom Filt Rate - Afr Amer 86 mL/min (>60); Estimated Creatinine Clearance 39.71 ml/min; Glucose 95 mg/dL (74-106); Magnesium 2.2 mg/dL (1.6-2.6); Sodium Level 145 mmol/L (136-145)
--- NOTE | 2018-04-22 07:48 | PN_ITS ---
Patient Problems: Active and Suspected Problems Hip fracture (Acute) Subtrochanteric fracture of left femur (Acute) Subjective: Patient seen pain appears to be controlled on the new regimen of morphine and OxyIR. Family had requested for Dilaudid to be discontinued the day prior. Her hemoglobin level remains relatively low at 8.6. She did receive transfusion with 1 unit PRBC the day prior. Plan is for patient to be transferred to [facility] facility pending approval of insurance precertification. Objective: GENERAL: Appears pale HEENT: Atraumatic; moist oral mucosa EYES; Anicteric, Normal Conjunctiva NECK; supple, normal thyroid, no distended JVD. RESPIRATORY: Diminished to auscultation bilaterally, CARDIOVASCULAR: Regular S1 S2, systolic murmurs GI: soft, non-tender, normoactive bowel sounds, : No Renal angle tenderness; EXTREMITIES: Left thigh incision dry and intact NEURO: Awake; no lateralizing signs. SKIN: No Rash Vitals/I&O's: Vital Signs Temp Pulse Resp BP Pulse Ox 97.9 F 68 20 H 118/57 L 98 04/22/18 02:20 04/22/18 04:04 04/22/18 02:20 04/22/18 02:20 04/22/18 02:20 Oxygen Flow Rate (L/min) 1 Oxygen Delivery Method Nasal Cannula Weight: 60.1 kg Body Mass Index (BMI) 24.3 Intake and Output for Last 24 Hours 04/20/18 04/21/18 04/22/18 23:59 23:59 23:59 Intake Total 3197 / 3197 2572 / 2572 489 / 489 Output Total 890 / 890 925 / 925 350 / 350 Balance 2307 / 2307 1647 / 1647 139 / 139 Laboratory Results 04/19/18 05:42: Crossmatch See Detail 04/19/18 05:42: Crossmatch See Detail 04/21/18 07:37: WBC 9.0, RBC 2.75 L, Hgb 7.9 L, Hct 25.7 L, MCV 93.5, MCH 28.7, MCHC 30.7 L, RDW 16.0 H, RDW Differential 52.5 H, Plt Count 147 L, MPV 9.6, Immature Gran % (Auto) 0.300, Neut % (Auto) 71.8 H, Lymph % (Auto) 13.3 L, [place] % (Auto) 14.3 H, Eos % (Auto) 0.1, Baso % (Auto) 0.2, Absolute Neuts (auto) 6.4, Absolute Lymphs (auto) 1.19, Total Counted Not Reportable 04/21/18 07:37: Sodium 150 H, Potassium 4.1, Chloride 116 H, Carbon Dioxide 27.0, Anion Gap 7, BUN 24 H, Creatinine 0.96, Estim Creat Clear Calc 33.51, Est GFR (MDRD) Af Amer 71, Est GFR (MDRD) Non-Af 59 L, BUN/Creatinine Ratio 24.9 H, Glucose 111 H, Calcium 8.2 L, Magnesium 2.2 04/21/18 07:37: Digoxin 0.34 L 04/22/18 06:07: WBC 7.8, RBC 2.87 L, Hgb 8.6 L, Hct 26.5 L, MCV 92.3, MCH 30.0, MCHC 32.5, RDW 15.9 H, RDW Differential 51.7 H, Plt Count 143 L, MPV 10.3 04/22/18 06:07: Sodium 145, Potassium 4.0, Chloride 110 H, Carbon Dioxide 26.0, Anion Gap 9, BUN 20 H, Creatinine 0.81, Estim Creat Clear Calc 39.71, Est GFR (MDRD) Af Amer 86, Est GFR (MDRD) Non-Af 71, BUN/Creatinine Ratio 24.6 H, Glucose 95, Calcium 8.3 L, Magnesium 2.2 Current Medications Acetaminophen (Tylenol) 650 mg PO Q6H PRN PRN PRN Reason: PAIN Aspirin (Aspirin, Baby) 81 mg PO DAILY@0800 [facility] Last Admin: 04/21/18 08:48 Dose: 81 mg Digoxin (Lanoxin) 62.5 mcg PO DAILY [facility] Last Admin: 04/21/18 08:51 Dose: 62.5 mcg Docusate Sodium (Colace) 100 mg PO BID [facility] Last Admin: 04/21/18 23:04 Dose: Not Given Donepezil HCl (Aricept) 10 mg PO QHS [facility] Last Admin: 04/21/18 23:03 Dose: Not Given Ferrous Sulfate (Ferrous Sulfate) 325 mg PO 1200,1700 [facility] Last Admin: 04/21/18 15:04 Dose: Not Given Furosemide (Lasix) 40 mg PO DAILY [facility] Last Admin: 04/21/18 09:30 Dose: 40 mg Dextrose () 1,000 mls @ 30 mls/hr IV .[id number] [facility] Last Admin: 04/21/18 13:02 Dose: 30 mls/hr Levothyroxine Sodium (Synthroid) 75 mcg PO DAILY@0600 [facility] Last Admin: 04/22/18 05:15 Dose: Not Given Metoprolol Succinate (Toprol Xl (Beta Issa)) 25 mg PO DAILY [facility] Last Admin: 04/21/18 08:45 Dose: Not Given Mirtazapine (Remeron) 7.5 mg PO QHS [facility] Last Admin: 04/21/18 23:04 Dose: Not Given Morphine Sulfate () 2 mg IV Q3H PRN PRN PRN Reason: SEVERE PAIN (6-10/10) Last Admin: 04/22/18 02:25 Dose: 2 mg Nutritional Formula (Lactose Free) (Ensure Enlive) 120 ml PO 4X/DAY [facility] Last Admin: 04/21/18 15:04 Dose: Not Given Ondansetron HCl (Zofran) 4 mg IV Q6H PRN PRN PRN Reason: NAUSEA Last Admin: 04/21/18 22:46 Dose: 4 mg Oxycodone HCl (Oxyir) 5 mg PO Q6H PRN PRN PRN Reason: SEVERE PAIN (6-10/10) Pantoprazole Sodium (Protonix) 20 mg PO DAILY [facility] Last Admin: 04/21/18 08:48 Dose: 20 mg Ramipril (Altace) 1.25 mg PO DAILY [facility] Last Admin: 04/21/18 08:49 Dose: Not Given Sertraline HCl (Zoloft) 75 mg PO DAILY [facility] Last Admin: 04/21/18 08:48 Dose: 75 mg Sodium Chloride () 5 - 15 ml IV UD PRN PRN Reason: SALINE FLUSH Last Admin: 04/22/18 02:24 Dose: 10 ml Medical Necessity - Tobacco Use Smoking Status: Never smoker Tobacco Use: Non-smoker Assessment/Plan All Active Problems Hip fracture (Acute) Subtrochanteric fracture of left femur (Acute) Patient is an 82-year-old lady resident at an assisted living facility who apparently sustained a fall and did complain of left hip pain. Patient was brought to the emergency department where imaging studies demonstrated Acute displaced subtrochanteric/ intertrochanteric fracture of the left hip patient admitted to a regular nursing floor with consultation placed to orthopedic surgery. 1. Fall with Acute displaced subtrochanteric, intertrochanteric fracture of the left hip patient admitted to regular nursing floor currently managed with immobilization, pain medications and consultation placed to Dr. Conley with orthopedic surgery for surgical intervention. Patient underwent Cephalo- medullary nail left hip 2. Symptomatic anemia patient was transfused with 1 unit PRBC on the morning of 04/21/2018 3. Hypernatremia managed with D5W has resolved as of 04/22/2018 4. Chronic A. fib rate controlled on digoxin and metoprolol patient on Eliquis held in anticipation of her surgery. With patient significant anemia resumption of Eliquis was held for additional day Eliquis resumed on 04/22/2018 5. Hypertension-blood pressure controlled, home medications continued with dose adjustment as needed 6. Chronic kidney disease stage III kidney function appears to be at baseline 7. Chronic diastolic congestive heart failure stable 8. Hypothyroidism-patient is on levothyroxine home dose continued 9. Dementia patient is on Aricept continued with supportive care 10. Conduction system disorder status post pacemaker placement 10. DVT prophylaxis patient on Eliquis Disposition: shelter facility pending insurance precertification Code Visit Inpatient E&M: [id number] [facility] Hosp L2
[2018-04-22] MEDS: Furosemide 40 MG Tablet PO (09:31)
[2018-04-22] MEDS: Sertraline 50 MG Tablet 75 MG PO (09:32)
[2018-04-22] MEDS: Pantoprazole Sodium 20 MG Tablet PO (09:32)
[2018-04-22] MEDS: Docusate Sodium 100 MG Capsule PO ×2 (09:32→22:13)
[2018-04-22] MEDS: Aspirin 81 MG TAB.CHEW PO (09:34)
[2018-04-22] MEDS: Metoprolol(XL)Succ 25 MG Tablet PO (09:34)
[2018-04-22] MEDS: Digoxin 125 MCG Tablet 62.5 MCG PO (09:35)
[2018-04-22] MEDS: oxyCODONE 5 MG Tablet PO ×2 (10:06→17:51)
[2018-04-22] MEDS: Ferrous Sulfate 325 MG Tablet PO ×2 (11:12→16:47)
[2018-04-22] MEDS: Acetaminophen 325 MG Tablet 650 MG PO (11:13)
--- NOTE | 2018-04-22 13:49 | PCM.PN.ORT ---
Patient Problems: Active and Suspected Problems Hip fracture (Acute) Subtrochanteric fracture of left femur (Acute) Subjective: Patient is doing well today. She answers my questions about pain appropriately. Continues to need assistance with mobility. Pain seems to be better controlled on morphine and OxyIR. Has resumed her Eliquis. Vital signs are stable. Patient did require 1 unit of packed red blood cells yesterday hemoglobin is 8.6 today. Symptoms are well managed. Objective: Operative radiographs of the femur show well aligned well fixed subtrochanteric hip fracture - Physical Exam General: Alert, Cooperative Extremities: - - Left lower extremity: Extremity exam with dressing Vital Signs Temp Pulse Resp BP Pulse Ox 98.9 F 85 16 104/52 L 98 04/22/18 08:20 04/22/18 10:18 04/22/18 08:20 04/22/18 08:20 04/22/18 08:20 Oxygen Flow Rate (L/min) 1 Oxygen Delivery Method Room Air Weight: 132 lb 7.965 oz Body Mass Index (BMI) 24.3 Intake and Output for Last 24 Hours 04/20/18 04/21/18 04/22/18 23:59 23:59 23:59 Intake Total 3197 / 3197 2572 / 2572 885 / 885 Output Total 890 / 890 925 / 925 600 / 600 Balance 2307 / 2307 1647 / 1647 285 / 285 Laboratory Tests Past 24 Hrs 04/22/18 04/22/18 06:07 06:07 WBC 7.8 RBC 2.87 L Hgb 8.6 L Hct 26.5 L MCV 92.3 MCH 30.0 MCHC 32.5 RDW 15.9 H RDW Differential 51.7 H Plt Count 143 L MPV 10.3 Sodium 145 Potassium 4.0 Chloride 110 H Carbon Dioxide 26.0 Anion Gap 9 BUN 20 H Creatinine 0.81 Estim Creat Clear Calc 39.71 Est GFR (MDRD) Af Amer 86 Est GFR (MDRD) Non-Af 71 BUN/Creatinine Ratio 24.6 H Glucose 95 Calcium 8.3 L Magnesium 2.2 Medical Necessity - Tobacco Use Smoking Status: Never smoker Tobacco Use: Non-smoker Assessment/Plan All Active Problems Hip fracture (Acute) Subtrochanteric fracture of left femur (Acute) Postop day 2 cephalo-medullary nail left hip 1. Physical therapy: Weight-bear as tolerated, activity as tolerated. Discussed with patient goals of treatment. Based on her comorbidities of dementia and previous mobility status may have long-term decrease in mobility. Reexpressed importance of therapy today. 2. DVT prophylaxis: Patient is restart Eliquis 3. Pain control: Per primary service. Seems to be improved with morphine and OxyIR. Would encourage maximizing nonnarcotic methods 4. Acute anemia: Patient likely has chronic anemia despite her initial presentation of hemoglobin of 12.4 after fluid resuscitation and the fracture dropped to below 10 prior to surgery. After surgery patient had another acute decrease in hemoglobin. Continue to monitor clinical symptoms. Would transfuse only if clinically indicated by symptoms. Disposition: Plan is for discharge to [facility] facility once approved by insurance. Patient will benefit greatly from [facility] as her ADLs and mobility will be greatly affected acutely and will require additional care. [facility] Office:
--- NOTE | 2018-04-22 13:54 | PN.ORTHO_ITS ---
Patient Problems: Active and Suspected Problems Hip fracture (Acute) Subtrochanteric fracture of left femur (Acute) Subjective: Patient is doing well today. She answers my questions about pain appropriately. Continues to need assistance with mobility. Pain seems to be better controlled on morphine and OxyIR. Has resumed her Eliquis. Vital signs are stable. Patient did require 1 unit of packed red blood cells yesterday hemoglobin is 8.6 today. Symptoms are well managed. Objective: Operative radiographs of the femur show well aligned well fixed subtrochanteric hip fracture - Physical Exam General: Alert, Cooperative Extremities: - - Left lower extremity: Extremity exam with dressing Vital Signs Temp Pulse Resp BP Pulse Ox 98.9 F 85 16 104/52 L 98 04/22/18 08:20 04/22/18 10:18 04/22/18 08:20 04/22/18 08:20 04/22/18 08:20 Oxygen Flow Rate (L/min) 1 Oxygen Delivery Method Room Air Weight: 132 lb 7.965 oz Body Mass Index (BMI) 24.3 Intake and Output for Last 24 Hours 04/20/18 04/21/18 04/22/18 23:59 23:59 23:59 Intake Total 3197 / 3197 2572 / 2572 885 / 885 Output Total 890 / 890 925 / 925 600 / 600 Balance 2307 / 2307 1647 / 1647 285 / 285 Laboratory Tests Past 24 Hrs 04/22/18 04/22/18 06:07 06:07 WBC 7.8 RBC 2.87 L Hgb 8.6 L Hct 26.5 L MCV 92.3 MCH 30.0 MCHC 32.5 RDW 15.9 H RDW Differential 51.7 H Plt Count 143 L MPV 10.3 Sodium 145 Potassium 4.0 Chloride 110 H Carbon Dioxide 26.0 Anion Gap 9 BUN 20 H Creatinine 0.81 Estim Creat Clear Calc 39.71 Est GFR (MDRD) Af Amer 86 Est GFR (MDRD) Non-Af 71 BUN/Creatinine Ratio 24.6 H Glucose 95 Calcium 8.3 L Magnesium 2.2 Medical Necessity - Tobacco Use Smoking Status: Never smoker Tobacco Use: Non-smoker Assessment/Plan All Active Problems Hip fracture (Acute) Subtrochanteric fracture of left femur (Acute) Postop day 2 cephalo-medullary nail left hip 1. Physical therapy: Weight-bear as tolerated, activity as tolerated. Discussed with patient goals of treatment. Based on her comorbidities of dementia and previous mobility status may have long-term decrease in mobility. Reexpressed importance of therapy today. 2. DVT prophylaxis: Patient is restart Eliquis 3. Pain control: Per primary service. Seems to be improved with morphine and OxyIR. Would encourage maximizing nonnarcotic methods 4. Acute anemia: Patient likely has chronic anemia despite her initial presentation of hemoglobin of 12.4 after fluid resuscitation and the fracture dropped to below 10 prior to surgery. After surgery patient had another acute decrease in hemoglobin. Continue to monitor clinical symptoms. Would transfuse only if clinically indicated by symptoms. Disposition: Plan is for discharge to shelter facility once approved by insurance. Patient will benefit greatly from shelter as her ADLs and mobility will be greatly affected acutely and will require additional care. [facility] Office:
--- NOTE | 2018-04-22 13:55 | DCINST_ITS ---
Discharge Diet: No Restrictions Discharge Activity: May Not Drive May shower in (days): 1 - with dressings intact Ice area for (Minutes): 20 - Ice area for 20 minutes each hour while awake Weight Bearing Status: Weight bearing as tolerated Keep extremity elevated above heart level: Operative Extremity Call your doctor if your incision/area has: Continuous Slow Oozing, Sudden Increased Bleeding, Increased Pain/ Swelling, Increased Redness, Foul Smelling Discharge Call your doctor if you observe: Fever of 101 or Higher, Coldness, Increased Pain, Numbness or Tingling, Change in Color Remove Dressing in (days):: 04-25-2018 Additional Dressing/Incision Instructions:: If incision is clean dry and intact may leave the wound open to air and continue showering. If there is continued drainage continue daily dry dressing changes and keep incision clean dry and intact until there is no drainage. Allergies/Adverse Reactions: Allergies diphenhydramine [From Benadryl] Allergy (Verified 04/18/18 16:19) Unknown flecainide Allergy (Verified 04/18/18 16:19) Unknown procainamide Allergy (Verified 04/18/18 16:19) Unknown tetanus toxoid, adsorbed Allergy (Verified 04/18/18 16:19) Unknown trimethobenzamide [From Tigan] Allergy (Verified 04/18/18 16:19) Unknown Medications to take at Discharge Apixaban [Eliquis] 2.5 mg PO BID 01/31/18 Calcium Carbonate/Vitamin D3 [Calcium 600 + Vit D Caplet] 1 each PO BID 01/31/18 Furosemide [Lasix] 40 mg PO DAILY 01/31/18 Levothyroxine [Synthroid] 75 mcg PO DAILY 01/31/18 Melatonin 5 mg PO DAILY 01/31/18 Nitroglycerin [Nitrostat] 0.4 mg SL X1 PRN 01/31/18 Omeprazole [Prilosec] 20 mg PO DAILY 01/31/18 Potassium Chloride [K-Dur] 20 meq PO BID 01/31/18 Ramipril [Altace] 1.25 mg PO DAILY 01/31/18 hydrOXYzine tablet [Atarax tablet] 25 mg PO PRN PRN 01/31/18 Acetaminophen [Tylenol] 650 mg PO TID PRN PRN 04/18/18 Ammonium Lactate [Skin Treatment] 1 applic TP DAILY 04/18/18 Ascorbic Acid [Vitamin C] 500 mg PO BID 04/18/18 Aspirin [Aspirin, Baby] 81 mg PO DAILY@0800 04/18/18 Cholecalciferol (Vitamin D3) [Vitamin D3] 400 unit PO DAILY 04/18/18 Cyanocobalamin [Vitamin B12] 100 mcg IM Q30D 04/18/18 Digoxin [Digox] 62.5 mcg PO DAILY 04/18/18 Donepezil HCl 5 mg PO QHS 04/18/18 Ferrous Sulfate 325 mg PO BID 04/18/18 Metoprolol Succinate [Toprol Xl] 25 mg PO DAILY 04/18/18 Mirtazapine [Remeron] 7.5 mg PO DAILY 04/18/18 Sertraline HCl [Zoloft] 75 mg PO DAILY 04/18/18 traMADol [Ultram (G)] 50 mg PO Q6H PRN PRN 04/18/18 Primary Care Physician: José Manuel Conley MD [Primary Care Provider] - Test Results: Test results from this visit will be discussed in further detail at your follow- up appointment, if applicable. Please Follow Up With: Glen Avery PA-C When: 2 weeks post op
[2018-04-22] MEDS: Mirtazapine 15 MG Tablet 7.5 MG PO (22:13)
[2018-04-22] MEDS: Donepezil HCl 10 MG Tablet PO (22:13)
--- NOTE | 2018-04-22 23:16 | NURSING ---
Pt's left leg is swollen. The festus hose was really tight and pinching her leg-leaving a large indentation. Removed the festus hose and applied fresh ice. Measured the leg and it was 62.5 cm. Measured again 2 hours later and the size did not change. The leg was less firm and less painful. Sent Dr Chris a picture of the bruise in the left groin. Bruise has been marked. Dr Chris up to see the pt. Per Dr. Chris hold tonights dose of Eliquis. Check with ortho/hospitalist about 10am dose of eliquis.
[2018-04-23] VITALS (9 sets, daily range): BP systolic 96–132; BP diastolic 45–68; PULSE 60–67; RESP 16–18; TEMP 36.6–37.2; O2SAT 93–97
[2018-04-23] MEDS: Acetaminophen 325 MG Tablet 650 MG PO ×3 (00:05→13:22)
[2018-04-23 05:55] LABS: Hematocrit 26.7 % (37-47); Hemoglobin 8.5 g/dl (12.0-15.0); Mean Corp Hgb Conc 31.8 g/gl (32-36); Mean Corpuscular Hgb 29.2 pg (27.0-32.0); Mean Corpuscular Volume 91.8 fL (81-99); Mean Platelet Vol. 10.3 fl (6.2-12.0); Platelet Count 190 K/mm3 (150-450); RBC Distribution Width CV 15.5 % (11.6-14.6); RBC Distribution Width SD 50.7 fl (35.1-43.9); Red Blood Count 2.91 M/mm3 (4.2-5.4); White Blood Count 7.6 K/mm3 (4.4-11.0)
[2018-04-23 06:02] LABS: Scan Indicated on CBC? Y/N NO
[2018-04-23 06:05] LABS: Anion Gap 9 (5-15); BUN 31 mg/dL (7-18); BUN/Creat Ratio 34.5 RATIO (10-20); Calcium,Total 8.3 mg/dL (8.5-10.1); Chloride 106 mmol/L (98-107); EST Glomerular Filtration Rate 64 mL/min (>60); Est Glom Filt Rate - Afr Amer 77 mL/min (>60); Estimated Creatinine Clearance 35.74 ml/min; Glucose 87 mg/dL (74-106); Potassium 3.9 mmol/L (3.5-5.1); Sodium Level 140 mmol/L (136-145)
[2018-04-23] MEDS: Levothyroxine 75 MCG Tablet PO (06:10)
[2018-04-23] MEDS: Aspirin 81 MG TAB.CHEW PO (08:21)
--- NOTE | 2018-04-23 09:34 | CASEMGMT ---
Social Work Note MERRY faxed updated clinicals to Shruthi at [facility]. MERRY placed a call to Shruthi and informed her to submit for pre-cert. Plan: [facility] pending pre-cert Symone Soriano MSW, DISTRICT ENGINEER
[2018-04-23] MEDS: Sertraline 50 MG Tablet 75 MG PO (10:03)
[2018-04-23] MEDS: Docusate Sodium 100 MG Capsule PO (10:04)
[2018-04-23] MEDS: Digoxin 125 MCG Tablet 62.5 MCG PO (10:05)
[2018-04-23] MEDS: Pantoprazole Sodium 20 MG Tablet PO (10:11)
--- NOTE | 2018-04-23 10:53 | PCM.PN.HOSP ---
Patient Problems: Active and Suspected Problems Hip fracture (Acute) Subtrochanteric fracture of left femur (Acute) Subjective: Has some operative site pain as well as swelling in her thigh, she is nervous about putting weight on her leg and is therefore max assist of 2 with PT. Vitals/I&O's: Vital Signs Temp Pulse Resp BP Pulse Ox 98.2 F 64 18 96/45 L 95 04/23/18 09:55 04/23/18 10:05 04/23/18 09:55 04/23/18 10:05 04/23/18 09:55 Oxygen Flow Rate (L/min) 1 Oxygen Delivery Method Room Air Weight: 132 lb 7.965 oz Body Mass Index (BMI) 24.3 Intake and Output for Last 24 Hours 04/21/18 04/22/18 04/23/18 23:59 23:59 23:59 Intake Total 2572 / 2572 2123 / 2123 832 / 832 Output Total 925 / 925 800 / 800 700 / 700 Balance 1647 / 1647 1323 / 1323 132 / 132 General: Alert, Oriented x3, Cooperative, No apparent distress HEENT: Atraumatic, EOMI, Normocephalic Oral: Moist Mucosa Neck: Supple, No JVD, Trachea Midline Lungs: Clear to auscultation, Normal air movement, No rhonchi, No wheeze, No rales, Diminished Cardiovascular: Regular rate, Regular Rhythm, Normal S1, Normal S2, No murmurs, No rub noted, No Gallop Abdomen: Soft, Non Tender, Non-Distended, No Hepato-splenomegaly Extremities: No edema, Capillary Refill Less than 3 Seconds Skin: No rashes, No breakdown, Incision - Dressing is intact and clean Neurological: Neuro grossly intact, Sensory exam intact to light touch and pain Psych/Mental Status: Normal Affect, Appropriate Laboratory Results 04/19/18 05:42: Crossmatch See Detail 04/23/18 05:10: WBC 7.6, RBC 2.91 L, Hgb 8.5 L, Hct 26.7 L, MCV 91.8, MCH 29.2, MCHC 31.8 L, RDW 15.5 H, RDW Differential 50.7 H, Plt Count 190, MPV 10.3 04/23/18 05:10: Sodium 140, Potassium 3.9, Chloride 106, Carbon Dioxide 25.0, Anion Gap 9, BUN 31 H, Creatinine 0.90, Estim Creat Clear Calc 35.74, Est GFR (MDRD) Af Amer 77, Est GFR (MDRD) Non-Af 64, BUN/Creatinine Ratio 34.5 H, Glucose 87, Calcium 8.3 L Current Medications Acetaminophen (Tylenol) 650 mg PO Q6H PRN PRN PRN Reason: PAIN Last Admin: 04/23/18 06:10 Dose: 650 mg Aspirin (Aspirin, Baby) 81 mg PO DAILY@0800 [facility] Last Admin: 04/23/18 08:21 Dose: 81 mg Digoxin (Lanoxin) 62.5 mcg PO DAILY [facility] Last Admin: 04/23/18 10:05 Dose: 62.5 mcg Docusate Sodium (Colace) 100 mg PO BID [facility] Last Admin: 04/23/18 10:04 Dose: 100 mg Donepezil HCl (Aricept) 10 mg PO QHS [facility] Last Admin: 04/22/18 22:13 Dose: 10 mg Ferrous Sulfate (Ferrous Sulfate) 325 mg PO 1200,1700 [facility] Last Admin: 04/22/18 16:47 Dose: 325 mg Furosemide (Lasix) 40 mg PO DAILY [facility] Last Admin: 04/22/18 09:31 Dose: 40 mg Dextrose () 1,000 mls @ 30 mls/hr IV .[id number] [facility] Last Admin: 04/22/18 22:08 Dose: 30 mls/hr Levothyroxine Sodium (Synthroid) 75 mcg PO DAILY@0600 [facility] Last Admin: 04/23/18 06:10 Dose: 75 mcg Metoprolol Succinate (Toprol Xl (Beta Issa)) 25 mg PO DAILY [facility] Last Admin: 04/22/18 09:34 Dose: 25 mg Mirtazapine (Remeron) 7.5 mg PO QHS [facility] Last Admin: 04/22/18 22:13 Dose: 7.5 mg Morphine Sulfate () 2 mg IV Q3H PRN PRN PRN Reason: SEVERE PAIN (6-10/10) Last Admin: 04/22/18 02:25 Dose: 2 mg Nutritional Formula (Lactose Free) (Ensure Clear) 120 ml PO 4X/DAY [facility] Last Admin: 04/23/18 10:01 Dose: 120 ml Ondansetron HCl (Zofran) 4 mg IV Q6H PRN PRN PRN Reason: NAUSEA Last Admin: 04/21/18 22:46 Dose: 4 mg Oxycodone HCl (Oxyir) 5 mg PO Q6H PRN PRN PRN Reason: SEVERE PAIN (6-10/10) Last Admin: 04/22/18 17:51 Dose: 5 mg Pantoprazole Sodium (Protonix) 20 mg PO DAILY [facility] Last Admin: 04/23/18 10:11 Dose: 20 mg Ramipril (Altace) 1.25 mg PO DAILY [facility] Last Admin: 04/22/18 09:33 Dose: 1.25 mg Sertraline HCl (Zoloft) 75 mg PO DAILY [facility] Last Admin: 04/23/18 10:03 Dose: 75 mg Sodium Chloride () 5 - 15 ml IV UD PRN PRN Reason: SALINE FLUSH Last Admin: 04/22/18 02:24 Dose: 10 ml Medical Necessity - Tobacco Use Smoking Status: Never smoker Tobacco Use: Non-smoker Assessment/Plan All Active Problems Hip fracture (Acute) Subtrochanteric fracture of left femur (Acute) 1. Fall with acute displaced subtrochanteric, intertrochanteric fracture of the left hip postop day 3/acute on chronic anemia -Ortho was consulted and placed the nail through the fracture stabilization -She was transfused 1 unit PRBCs 2 days ago for hemoglobin below 8 she is currently holding steady at 8.5 today -With iron replacement -We will resume anticoagulation on discharge -Placement to SNF -PT/OT 2. Chronic A. fib/HTN/CKD 3/pacemaker placement for conduction system disorder/chronic diastolic CHF -She can be resumed on her Eliquis on discharge will trend her hemoglobins during her stay -Continue with her home blood pressure medications -Otherwise she is doing well and will continue to be monitored 3. Hypothyroidism -Stable -continue with home Synthroid 4. Dementia -She is currently on Aricept which will be continued -With Remeron DVT: Will resume Eliquis tomorrow Code Visit Inpatient E&M: 42226 Subs Hosp L2
--- NOTE | 2018-04-23 11:00 | PN_ITS ---
Patient Problems: Active and Suspected Problems Hip fracture (Acute) Subtrochanteric fracture of left femur (Acute) Subjective: Has some operative site pain as well as swelling in her thigh, she is nervous about putting weight on her leg and is therefore max assist of 2 with PT. Vitals/I&O's: Vital Signs Temp Pulse Resp BP Pulse Ox 98.2 F 64 18 96/45 L 95 04/23/18 09:55 04/23/18 10:05 04/23/18 09:55 04/23/18 10:05 04/23/18 09:55 Oxygen Flow Rate (L/min) 1 Oxygen Delivery Method Room Air Weight: 132 lb 7.965 oz Body Mass Index (BMI) 24.3 Intake and Output for Last 24 Hours 04/21/18 04/22/18 04/23/18 23:59 23:59 23:59 Intake Total 2572 / 2572 2123 / 2123 832 / 832 Output Total 925 / 925 800 / 800 700 / 700 Balance 1647 / 1647 1323 / 1323 132 / 132 General: Alert, Oriented x3, Cooperative, No apparent distress HEENT: Atraumatic, EOMI, Normocephalic Oral: Moist Mucosa Neck: Supple, No JVD, Trachea Midline Lungs: Clear to auscultation, Normal air movement, No rhonchi, No wheeze, No rales, Diminished Cardiovascular: Regular rate, Regular Rhythm, Normal S1, Normal S2, No murmurs, No rub noted, No Gallop Abdomen: Soft, Non Tender, Non-Distended, No Hepato-splenomegaly Extremities: No edema, Capillary Refill Less than 3 Seconds Skin: No rashes, No breakdown, Incision - Dressing is intact and clean Neurological: Neuro grossly intact, Sensory exam intact to light touch and pain Psych/Mental Status: Normal Affect, Appropriate Laboratory Results 04/19/18 05:42: Crossmatch See Detail 04/23/18 05:10: WBC 7.6, RBC 2.91 L, Hgb 8.5 L, Hct 26.7 L, MCV 91.8, MCH 29.2, MCHC 31.8 L, RDW 15.5 H, RDW Differential 50.7 H, Plt Count 190, MPV 10.3 04/23/18 05:10: Sodium 140, Potassium 3.9, Chloride 106, Carbon Dioxide 25.0, Anion Gap 9, BUN 31 H, Creatinine 0.90, Estim Creat Clear Calc 35.74, Est GFR (MDRD) Af Amer 77, Est GFR (MDRD) Non-Af 64, BUN/Creatinine Ratio 34.5 H, Glucose 87, Calcium 8.3 L Current Medications Acetaminophen (Tylenol) 650 mg PO Q6H PRN PRN PRN Reason: PAIN Last Admin: 04/23/18 06:10 Dose: 650 mg Aspirin (Aspirin, Baby) 81 mg PO DAILY@0800 [facility] Last Admin: 04/23/18 08:21 Dose: 81 mg Digoxin (Lanoxin) 62.5 mcg PO DAILY [facility] Last Admin: 04/23/18 10:05 Dose: 62.5 mcg Docusate Sodium (Colace) 100 mg PO BID [facility] Last Admin: 04/23/18 10:04 Dose: 100 mg Donepezil HCl (Aricept) 10 mg PO QHS [facility] Last Admin: 04/22/18 22:13 Dose: 10 mg Ferrous Sulfate (Ferrous Sulfate) 325 mg PO 1200,1700 [facility] Last Admin: 04/22/18 16:47 Dose: 325 mg Furosemide (Lasix) 40 mg PO DAILY [facility] Last Admin: 04/22/18 09:31 Dose: 40 mg Dextrose () 1,000 mls @ 30 mls/hr IV .[id number] [facility] Last Admin: 04/22/18 22:08 Dose: 30 mls/hr Levothyroxine Sodium (Synthroid) 75 mcg PO DAILY@0600 [facility] Last Admin: 04/23/18 06:10 Dose: 75 mcg Metoprolol Succinate (Toprol Xl (Beta Issa)) 25 mg PO DAILY [facility] Last Admin: 04/22/18 09:34 Dose: 25 mg Mirtazapine (Remeron) 7.5 mg PO QHS [facility] Last Admin: 04/22/18 22:13 Dose: 7.5 mg Morphine Sulfate () 2 mg IV Q3H PRN PRN PRN Reason: SEVERE PAIN (6-10/10) Last Admin: 04/22/18 02:25 Dose: 2 mg Nutritional Formula (Lactose Free) (Ensure Clear) 120 ml PO 4X/DAY [facility] Last Admin: 04/23/18 10:01 Dose: 120 ml Ondansetron HCl (Zofran) 4 mg IV Q6H PRN PRN PRN Reason: NAUSEA Last Admin: 04/21/18 22:46 Dose: 4 mg Oxycodone HCl (Oxyir) 5 mg PO Q6H PRN PRN PRN Reason: SEVERE PAIN (6-10/10) Last Admin: 04/22/18 17:51 Dose: 5 mg Pantoprazole Sodium (Protonix) 20 mg PO DAILY [facility] Last Admin: 04/23/18 10:11 Dose: 20 mg Ramipril (Altace) 1.25 mg PO DAILY [facility] Last Admin: 04/22/18 09:33 Dose: 1.25 mg Sertraline HCl (Zoloft) 75 mg PO DAILY [facility] Last Admin: 04/23/18 10:03 Dose: 75 mg Sodium Chloride () 5 - 15 ml IV UD PRN PRN Reason: SALINE FLUSH Last Admin: 04/22/18 02:24 Dose: 10 ml Medical Necessity - Tobacco Use Smoking Status: Never smoker Tobacco Use: Non-smoker Assessment/Plan All Active Problems Hip fracture (Acute) Subtrochanteric fracture of left femur (Acute) 1. Fall with acute displaced subtrochanteric, intertrochanteric fracture of the left hip postop day 3/acute on chronic anemia -Ortho was consulted and placed the nail through the fracture stabilization -She was transfused 1 unit PRBCs 2 days ago for hemoglobin below 8 she is currently holding steady at 8.5 today -With iron replacement -We will resume anticoagulation on discharge -Placement to SNF -PT/OT 2. Chronic A. fib/HTN/CKD 3/pacemaker placement for conduction system disorder/chronic diastolic CHF -She can be resumed on her Eliquis on discharge will trend her hemoglobins during her stay -Continue with her home blood pressure medications -Otherwise she is doing well and will continue to be monitored 3. Hypothyroidism -Stable -continue with home Synthroid 4. Dementia -She is currently on Aricept which will be continued -With Remeron DVT: Will resume Eliquis tomorrow Code Visit Inpatient E&M: 43940 Subs Hosp L2
--- NOTE | 2018-04-23 12:17 | PCM.TXEXTCAR ---
- Diet 04/22/18 08:42 Diet: Cardiac/Low Cholesterol Food consistency:: Soft Liquid Consistency:: Regular/Thin Dietary Modifications:: Soft Diet Is pt able to select menu?: No - Routine Orders/Code Status Routine Lab Work: CBC - In 1-2 days Code Status: [id number]-A - Wound(s) Left lateral bundy Wound Type: Surgical Incision LLE Wound Type: Surgical Incision Dressing Change: Dry Sterile Dressing - Therapies Weight Bearing: Weight bearing as tolerated - Allergies/Procedures Done in Hospital Allergies/Adverse Reactions: Allergies diphenhydramine [From Benadryl] Allergy (Verified 04/18/18 16:19) Unknown flecainide Allergy (Verified 04/18/18 16:19) Unknown procainamide Allergy (Verified 04/18/18 16:19) Unknown tetanus toxoid, adsorbed Allergy (Verified 04/18/18 16:19) Unknown trimethobenzamide [From Tigan] Allergy (Verified 04/18/18 16:19) Unknown - Type of Care/Length of Stay Estimated LOS: Convalescent Care Less Than 30 days Type of Care Needed: Skilled Rehab Potential: Good Prognosis: Good - Additional Orders/Day of Discharge Day of Discharge: 04/23/18 - Dietary and Speech Recommendations Dietitian Recommendations/Changes: Rec regular diet when medically appropriate. Will switch ONS to Ensure Clear per pt preference. - Follow Up Care Primary Care Physician: José Manuel Conley MD [Primary Care Provider] - Please follow up with your Primary Care Physician in: 3-5 days Please Follow Up With: Glen Avery PA-C When: 2 weeks post op
--- NOTE | 2018-04-23 12:21 | PCM.DC.SUM ---
Discharge Date and Diagnosis - Problem List Patient Problems: Active and Suspected Problems Hip fracture (Acute) Subtrochanteric fracture of left femur (Acute) Date of Admission: 04/18/18 Date of Discharge: 04/23/18 - Primary Discharge Diagnosis Active and Suspected Problems Hip fracture (Acute) Subtrochanteric fracture of left femur (Acute) - Secondary Discharge Diagnosis Chronic Problems CHF (congestive heart failure) (Chronic) Afib (Chronic) CKD (chronic kidney disease) stage 3, GFR 30-59 ml/min (Chronic) Dementia (Chronic) Hypothyroidism (Chronic) Hospital Course and Treatment Imaging Results: L Hip XR: IMPRESSION: Acute displaced subtrochanteric/ intertrochanteric fracture of the left hip CT brain: IMPRESSION: Atrophy and moderate periventricular white matter ischemic changes. No evidence for acute intracranial bleed CT C-spine: IMPRESSION: No evidence for acute fracture or subluxation. Mild spondylosis Consults: Ortho Operations: - - Date of Procedure: 04/20/18 Pre-Operative Diagnosis: Left hip subtrochanteric fracture, displaced Post-Operative Diagnosis: Left hip subtrochanteric fracture, displaced Surgery/Procedure Performed:: Cephalo-medullary nail left hip Description of Surgical Findings:: Stable hip reduction adjunct art history instructor: Martita Sánchez Type of Anesthesia:: General Anesthesiologist: Neptali Vincent Special Medications: 2 Grams Ancef Estimated Blood Loss (mL): 250 Fluids Replaced: 900 mL crystalloid Description of Procedure: Components used: 1. [employer] InterTAN nail 65zap22.5 mm, 2. [employer] Inter[employer]AN subtroch lag screw 100mm 3. [employer] 45 millimeter interlocking screw Procedures: 2-D Echocardiogram - Interpretation Summary Normal LV size. Left ventricular systolic function is normal. The estimated ejection fraction is 60 %. Stage 1 diastolic dysfunction. The left atrium is mildly enlarged. Mild to moderate aortic stenosis. Severe pulmonary hypertension. Pulmonary artery systolic pressure is 78 mmHg. Summary of Care Provided: Per HPI: The patient is a 82 year old F with a pmhx of dementia, afib, pacmaker in place, CHF, CKDIII, htn, hypothyroidism, who presents to the ER from [facility], after being found down after an unwitnessed fall. She was brought in by EMS and cannot provide a story as to what happened 2/2 dementia, just that she woke up on the floor. She is usually alert and oriented to self and place. She has had dementia for about 2 years that has worsened since she lost her . She had significant left hip pain requiring dilaudid. She then unerwent a femoral nerve block. She is currently resting comfortably in bed. She had imaging done revealing a subtroch/intertroch fracture of the left hip. She will be admitted for hip repair with Dr. Conley. Hospital Course: 1. Fall with acute displaced subtrochanteric and intertrochanteric fracture of the left hip postop day 3 from nail placement/acute on chronic anemia/chronic A. [id number]-old female with a history of dementia, and A. fib who presented after a fall that was unwitnessed at [facility]. She was brought in by EMS and could not really specify what had happened. She was found on x-ray to have a left hip fracture and was taken for surgery. She is currently postop day 3 and is doing okay however she does have difficulty with mobility and will need to be discharged to a [facility] for rehab. She was found to have a decrease in her hemoglobin after IV fluid resuscitation as well as surgery. She did require a 1 unit PRBC for hemoglobin of 7.9 and she has had 2 hemoglobin since that have been stable at 8.6 and 8.5 on the day of discharge. She is on aspirin for her ischemic cardiomyopathy and chronic diastolic CHF, and she is on aspirin as an outpatient which has been resumed however she is also on Eliquis for chronic A. fib and this is been held secondary to a repeat CBC at the [facility] facility. If her hemoglobin is stable and can resume her Eliquis. We will also recommend continuing her iron supplementation with her vitamin C given that she is on omeprazole for GERD. 2. Her other medical diagnoses were evaluated and her home medications were continued where appropriate Patient Problems: Active and Suspected Problems Hip fracture (Acute) Subtrochanteric fracture of left femur (Acute) - Physical Exam Vital Signs Temp Pulse Resp BP Pulse Ox 98.2 F 64 18 96/45 L 95 04/23/18 09:55 04/23/18 11:18 04/23/18 09:55 04/23/18 11:18 04/23/18 09:55 Oxygen Flow Rate (L/min) 1 Oxygen Delivery Method Room Air Weight: 132 lb 7.965 oz Body Mass Index (BMI) 24.3 Intake and Output for Last 24 Hours 04/21/18 04/22/18 04/23/18 23:59 23:59 23:59 Intake Total 2572 / 2572 2123 / 2123 832 / 832 Output Total 925 / 925 800 / 800 700 / 700 Balance 1647 / 1647 1323 / 1323 132 / 132 Laboratory Tests Past 24 Hrs 04/19/18 04/23/18 04/23/18 05:42 05:10 05:10 WBC 7.6 RBC 2.91 L Hgb 8.5 L Hct 26.7 L MCV 91.8 MCH 29.2 MCHC 31.8 L RDW 15.5 H RDW Differential 50.7 H Plt Count 190 MPV 10.3 Sodium 140 Potassium 3.9 Chloride 106 Carbon Dioxide 25.0 Anion Gap 9 BUN 31 H Creatinine 0.90 Estim Creat Clear Calc 35.74 Est GFR (MDRD) Af Amer 77 Est GFR (MDRD) Non-Af 64 BUN/Creatinine Ratio 34.5 H Glucose 87 Calcium 8.3 L Crossmatch See Detail Discharge Diet: No Restrictions Discharge Activity: May Not Drive May shower in (days): 1 - with dressings intact Ice area for (Minutes): 20 - Ice area for 20 minutes each hour while awake Weight Bearing Status: Weight bearing as tolerated Keep extremity elevated above heart level: Operative Extremity Call your doctor if your incision/area has: Continuous Slow Oozing, Sudden Increased Bleeding, Increased Pain/ Swelling, Increased Redness, Foul Smelling Discharge Call your doctor if you observe: Fever of 101 or Higher, Coldness, Increased Pain, Numbness or Tingling, Change in Color Remove Dressing in (days):: 04-25-2018 Additional Dressing/Incision Instructions:: If incision is clean dry and intact may leave the wound open to air and continue showering. If there is continued drainage continue daily dry dressing changes and keep incision clean dry and intact until there is no drainage. Home Medications: Medications to take at Discharge Calcium Carbonate/Vitamin D3 [Calcium 600-Vit D3 400 Caplet] 1 each PO BID 01/31/18 Furosemide [Lasix] 40 mg PO DAILY 01/31/18 Levothyroxine [Synthroid] 75 mcg PO DAILY 01/31/18 Melatonin 5 mg PO DAILY 01/31/18 Nitroglycerin [Nitrostat] 0.4 mg SL X1 PRN 01/31/18 Omeprazole [Prilosec] 20 mg PO DAILY 01/31/18 Potassium Chloride [K-Dur] 20 meq PO BID 01/31/18 Ramipril [Altace] 1.25 mg PO DAILY 01/31/18 hydrOXYzine tablet [Atarax tablet] 25 mg PO PRN PRN 01/31/18 Acetaminophen [Tylenol] 650 mg PO TID PRN PRN 04/18/18 Ammonium Lactate [Skin Treatment] 1 applic TP DAILY 04/18/18 Ascorbic Acid [Vitamin C] 500 mg PO BID 04/18/18 Aspirin [Aspirin, Baby] 81 mg PO DAILY@0800 04/18/18 Cholecalciferol (Vitamin D3) [Vitamin D3] 400 unit PO DAILY 04/18/18 Cyanocobalamin [Vitamin B12] 100 mcg IM Q30D 04/18/18 Digoxin [Digox] 62.5 mcg PO DAILY 04/18/18 Donepezil HCl 5 mg PO QHS 04/18/18 Ferrous Sulfate 325 mg PO BID 04/18/18 Metoprolol Succinate [Toprol Xl] 25 mg PO DAILY 04/18/18 Mirtazapine [Remeron] 7.5 mg PO DAILY 04/18/18 Sertraline HCl [Zoloft] 75 mg PO DAILY 04/18/18 traMADol [Ultram] 50 mg PO Q6H PRN PRN 04/18/18 Apixaban [Eliquis] 2.5 mg PO BID #0 04/23/18 Primary Care Physician: José Manuel Conley MD [Primary Care Provider] - Please follow up with your Primary Care Physician in: 3-5 days Please Follow Up With: Glen Avery PA-C When: 2 weeks post op Disposition: Halfway facility Minutes spent on discharge:: 35 Patient Condition:: Stable Medical Necessity - Tobacco Use Smoking Status: Never smoker Tobacco Use: Non-smoker Meaningful Use Info Meaningful Use Diagnoses (Choose all that apply): None applicable Code Visit Inpatient E&M: 83546 Disch Hosp
--- NOTE | 2018-04-23 12:37 | DS.PCM_ITS ---
Discharge Date and Diagnosis - Problem List Patient Problems: Active and Suspected Problems Hip fracture (Acute) Subtrochanteric fracture of left femur (Acute) Date of Admission: 04/18/18 Date of Discharge: 04/23/18 - Primary Discharge Diagnosis Active and Suspected Problems Hip fracture (Acute) Subtrochanteric fracture of left femur (Acute) - Secondary Discharge Diagnosis Chronic Problems CHF (congestive heart failure) (Chronic) Afib (Chronic) CKD (chronic kidney disease) stage 3, GFR 30-59 ml/min (Chronic) Dementia (Chronic) Hypothyroidism (Chronic) Hospital Course and Treatment Imaging Results: L Hip XR: IMPRESSION: Acute displaced subtrochanteric/ intertrochanteric fracture of the left hip CT brain: IMPRESSION: Atrophy and moderate periventricular white matter ischemic changes. No evidence for acute intracranial bleed CT C-spine: IMPRESSION: No evidence for acute fracture or subluxation. Mild spondylosis Consults: Ortho Operations: - - Date of Procedure: 04/20/18 Pre-Operative Diagnosis: Left hip subtrochanteric fracture, displaced Post-Operative Diagnosis: Left hip subtrochanteric fracture, displaced Surgery/Procedure Performed:: Cephalo- medullary nail left hip Description of Surgical Findings:: Stable hip reduction tassel clipper: Martita Sánchez Type of Anesthesia:: General Anesthesiologist: Neptali Vincent Special Medications: 2 Grams Ancef Estimated Blood Loss (mL): 250 Fluids Replaced: 900 mL crystalloid Description of Procedure: Components used: 1. [employer] InterTAN nail 95afn89.5 mm, 2. [employer]AN subtroch lag screw 100mm 3. [employer] 45 millimeter interlocking screw Procedures: 2-D Echocardiogram - Interpretation Summary Normal LV size. Left ventricular systolic function is normal. The estimated ejection fraction is 60 %. Stage 1 diastolic dysfunction. The left atrium is mildly enlarged. Mild to moderate aortic stenosis. Severe pulmonary hypertension. Pulmonary artery systolic pressure is 78 mmHg. Summary of Care Provided: Per HPI: The patient is a 82 year old F with a pmhx of dementia, afib, pacmaker in place, CHF, CKDIII, htn, hypothyroidism, who presents to the ER from [facility], after being found down after an unwitnessed fall. She was brought in by EMS and cannot provide a story as to what happened 2/2 dementia, just that she woke up on the floor. She is usually alert and oriented to self and place. She has had dementia for about 2 years that has worsened since she lost her . She had significant left hip pain requiring dilaudid. She then unerwent a femoral nerve block. She is currently resting comfortably in bed. She had imaging done revealing a subtroch/intertroch fracture of the left hip. She will be admitted for hip repair with Dr. Conley. Hospital Course: 1. Fall with acute displaced subtrochanteric and intertrochanteric fracture of the left hip postop day 3 from nail placement/acute on chronic anemia/chronic A. noe-[id number]-old female with a history of dementia, and A. fib who presented after a fall that was unwitnessed at [facility]. She was brought in by EMS and could not really specify what had happened. She was found on x-ray to have a left hip fracture and was taken for surgery. She is currently postop day 3 and is doing okay however she does have difficulty with mobility and will need to be discharged to a care home facility for rehab. She was found to have a decrease in her hemoglobin after IV fluid resuscitation as well as surgery. She did require a 1 unit PRBC for hemoglobin of 7.9 and she has had 2 hemoglobin since that have been stable at 8.6 and 8.5 on the day of discharge. She is on aspirin for her ischemic cardiomyopathy and chronic diastolic CHF, and she is on aspirin as an outpatient which has been resumed however she is also on Eliquis for chronic A. fib and this is been held secondary to a repeat CBC at the care home facility. If her hemoglobin is stable and can resume her Eliquis. We will also recommend continuing her iron supplementation with her vitamin C given that she is on omeprazole for GERD. 2. Her other medical diagnoses were evaluated and her home medications were continued where appropriate Patient Problems: Active and Suspected Problems Hip fracture (Acute) Subtrochanteric fracture of left femur (Acute) - Physical Exam Vital Signs Temp Pulse Resp BP Pulse Ox 98.2 F 64 18 96/45 L 95 04/23/18 09:55 04/23/18 11:18 04/23/18 09:55 04/23/18 11:18 04/23/18 09:55 Oxygen Flow Rate (L/min) 1 Oxygen Delivery Method Room Air Weight: 132 lb 7.965 oz Body Mass Index (BMI) 24.3 Intake and Output for Last 24 Hours 04/21/18 04/22/18 04/23/18 23:59 23:59 23:59 Intake Total 2572 / 2572 2123 / 2123 832 / 832 Output Total 925 / 925 800 / 800 700 / 700 Balance 1647 / 1647 1323 / 1323 132 / 132 Laboratory Tests Past 24 Hrs 04/19/18 04/23/18 04/23/18 05:42 05:10 05:10 WBC 7.6 RBC 2.91 L Hgb 8.5 L Hct 26.7 L MCV 91.8 MCH 29.2 MCHC 31.8 L RDW 15.5 H RDW Differential 50.7 H Plt Count 190 MPV 10.3 Sodium 140 Potassium 3.9 Chloride 106 Carbon Dioxide 25.0 Anion Gap 9 BUN 31 H Creatinine 0.90 Estim Creat Clear Calc 35.74 Est GFR (MDRD) Af Amer 77 Est GFR (MDRD) Non-Af 64 BUN/Creatinine Ratio 34.5 H Glucose 87 Calcium 8.3 L Crossmatch See Detail Discharge Diet: No Restrictions Discharge Activity: May Not Drive May shower in (days): 1 - with dressings intact Ice area for (Minutes): 20 - Ice area for 20 minutes each hour while awake Weight Bearing Status: Weight bearing as tolerated Keep extremity elevated above heart level: Operative Extremity Call your doctor if your incision/area has: Continuous Slow Oozing, Sudden Increased Bleeding, Increased Pain/ Swelling, Increased Redness, Foul Smelling Discharge Call your doctor if you observe: Fever of 101 or Higher, Coldness, Increased Pain, Numbness or Tingling, Change in Color Remove Dressing in (days):: 04-25-2018 Additional Dressing/Incision Instructions:: If incision is clean dry and intact may leave the wound open to air and continue showering. If there is continued drainage continue daily dry dressing changes and keep incision clean dry and intact until there is no drainage. Home Medications: Medications to take at Discharge Calcium Carbonate/Vitamin D3 [Calcium 600-Vit D3 400 Caplet] 1 each PO BID 01/31/18 Furosemide [Lasix] 40 mg PO DAILY 01/31/18 Levothyroxine [Synthroid] 75 mcg PO DAILY 01/31/18 Melatonin 5 mg PO DAILY 01/31/18 Nitroglycerin [Nitrostat] 0.4 mg SL X1 PRN 01/31/18 Omeprazole [Prilosec] 20 mg PO DAILY 01/31/18 Potassium Chloride [K-Dur] 20 meq PO BID 01/31/18 Ramipril [Altace] 1.25 mg PO DAILY 01/31/18 hydrOXYzine tablet [Atarax tablet] 25 mg PO PRN PRN 01/31/18 Acetaminophen [Tylenol] 650 mg PO TID PRN PRN 04/18/18 Ammonium Lactate [Skin Treatment] 1 applic TP DAILY 04/18/18 Ascorbic Acid [Vitamin C] 500 mg PO BID 04/18/18 Aspirin [Aspirin, Baby] 81 mg PO DAILY@0800 04/18/18 Cholecalciferol (Vitamin D3) [Vitamin D3] 400 unit PO DAILY 04/18/18 Cyanocobalamin [Vitamin B12] 100 mcg IM Q30D 04/18/18 Digoxin [Digox] 62.5 mcg PO DAILY 04/18/18 Donepezil HCl 5 mg PO QHS 04/18/18 Ferrous Sulfate 325 mg PO BID 04/18/18 Metoprolol Succinate [Toprol Xl] 25 mg PO DAILY 04/18/18 Mirtazapine [Remeron] 7.5 mg PO DAILY 04/18/18 Sertraline HCl [Zoloft] 75 mg PO DAILY 04/18/18 traMADol [Ultram] 50 mg PO Q6H PRN PRN 04/18/18 Apixaban [Eliquis] 2.5 mg PO BID #0 04/23/18 Primary Care Physician: José Manuel Conley MD [Primary Care Provider] - Please follow up with your Primary Care Physician in: 3-5 days Please Follow Up With: Glen Avery PA-C When: 2 weeks post op Disposition: Long-Term facility Minutes spent on discharge:: 35 Patient Condition:: Stable Medical Necessity - Tobacco Use Smoking Status: Never smoker Tobacco Use: Non-smoker Meaningful Use Info Meaningful Use Diagnoses (Choose all that apply): None applicable Code Visit Inpatient E&M: 67384 Disch Hosp
[2018-04-23] MEDS: Furosemide 40 MG Tablet PO (13:19)
[2018-04-23] MEDS: Ferrous Sulfate 325 MG Tablet PO (13:19)
[2018-04-23] MEDS: oxyCODONE 5 MG Tablet PO (13:25)
--- NOTE | 2018-04-23 13:30 | CASEMGMT ---
Addendum entered by Symone Soriano 04/23/18 16:07: MERRY spoke with JUSTYNA Montalvo at [facility] and updated her that pt is discharged to [facility] today skilled. Original Note: Social Work Note SW received call from Shruthi at [facility] stating she received pre-cert and pt is able to discharge today. MERRY updated physician. MERRY faxed completed discharge paperwork to [facility] including transfer to extended care facility, signed medication list and any scripts. Originals in SNF folder and copy on pt's chart. MERRY completed [facility] in [facility]. Originals in SNF folder and copy on pt's chart. MERRY set up transportation through [facility] via cot for 3:00pm. Transportation form on SNF folder and copy on pt's chart. MERRY placed a call to pt's daughter Sonia as both [facility] and [facility]ia's numbers are listed as the same on pt's demographics. MERRY updated Sonia on pt's discharge today and transportation time. Sonia provided [facility]'s number ([phone]). MERRY placed a call to [facility] and updated her on pt's discharge today and transportation time. RN, physician office secretary and Shruthi at [facility] updated on transportation time. Plan: Pt to discharge to [facility] skilled with [facility] transporting via cot at 3:00pm. Symone Soriano [employer]USTRI[employer] SWEEPER CLE[employer]ER, DIRECT CHILL CASTER
--- NOTE | 2018-04-23 14:29 | NURSING ---
report called to [facility] and spoke with Helen
== END 2018-04-23 15:15 | disposition skilled nursing facility (03) | DRG 481 ==
LOC: ED 18:46 → MS3 18:57
PROVIDERS: Anesthesiology; Internal Medicine; Specialist; Admitting Provider Internal Medicine; Emergency Provider Emergency Medicine; Family Provider Internal Medicine; PCP Family Medicine; Visit Provider Family Medicine
PROC: 0QS706Z Reposition Left Upper Femur with Intramedullary Internal Fixation Device, Open Approach (ICD-10-PCS; CPT 27245; principal; 2018-04-20 14:15)
DX: S72.22XA Displaced subtrochanteric fracture of left femur, initial encounter for closed fracture (principal); I13.0 Hypertensive heart and chronic kidney disease with heart failure and stage 1 through stage 4 chronic kidney disease, or unspecified chronic kidney disease; I50.32 Chronic diastolic (congestive) heart failure; E87.0 Hyperosmolality and hypernatremia; R71.0 Precipitous drop in hematocrit; S72.142A Displaced intertrochanteric fracture of left femur, initial encounter for closed fracture; I48.2 Chronic atrial fibrillation; F03.90 Unspecified dementia, unspecified severity, without behavioral disturbance, psychotic disturbance, mood disturbance, and anxiety; E03.9 Hypothyroidism, unspecified; W18.30XA Fall on same level, unspecified, initial encounter; Y92.091 Bathroom in other non-institutional residence as the place of occurrence of the external cause; N18.3 Chronic kidney disease, stage 3 (moderate); I25.5 Ischemic cardiomyopathy; Z95.0 Presence of cardiac pacemaker; Z79.01 Long term (current) use of anticoagulants; K21.9 Gastro-esophageal reflux disease without esophagitis; D64.9 Anemia, unspecified
CPT/HCPCS: 36415; 51702; 70450; 71045; 72125; 73502; 73552; 76000; 80048; 80053; 80076; 80162; 81001; 83735; 84443; 85025; 85027; 85610; 85730; 86850; 86900; 86920; 92526; 93005; 93306; 97162; 97166; 97530; 97802; 99251; 99285; C1713; J7030; J7040; P9016; P9017; A4216; G0463; J2405

== ENCOUNTER → 2018-07-04 04:00 | Outpatient (REF) | payer MEDICARE, SELFPAY ==
[2018-04-20 13:27] VITALS: BMI 24.3
[2018-07-04 07:42] LABS: Hematocrit 37.2 % (37-47); Hemoglobin 11.4 g/dl (12.0-15.0); Mean Corp Hgb Conc 30.6 g/gl (32-36); Mean Corpuscular Hgb 28.6 pg (27.0-32.0); Mean Corpuscular Volume 93.5 fL (81-99); Mean Platelet Vol. 9.5 fl (6.2-12.0); Platelet Count 254 K/mm3 (150-450); RBC Distribution Width CV 15.2 % (11.6-14.6); RBC Distribution Width SD 50.2 fl (35.1-43.9); Red Blood Count 3.98 M/mm3 (4.2-5.4); White Blood Count 5.8 K/mm3 (4.4-11.0)
[2018-07-04 07:43] LABS: Scan Indicated on CBC? Y/N NO
[2018-07-04 08:13] LABS: ALB/GLOB Ratio 0.9 RATIO (0.9-2.4); AST(SGOT) 18 U/L (15-37); Alanine Aminotransfer ALT/SGPT 17 U/L (13-56); Albumin, Serum 2.9 g/dL (3.2-5.0); Alkaline Phosphatase 110 U/L (45-117); Anion Gap 4 (5-15); BUN 27 mg/dL (7-18); BUN/Creat Ratio 22.7 RATIO (10-20); Calcium,Total 8.9 mg/dL (8.5-10.1); Chloride 107 mmol/L (98-107); Creatinine, Serum 1.19 mg/dL (0.55-1.02); EST Glomerular Filtration Rate 46 mL/min (>60); Est Glom Filt Rate - Afr Amer 56 mL/min (>60); Globulin 3.3 g/dL (2.2-4.2); Glucose 79 mg/dL (74-106); Potassium 4.5 mmol/L (3.5-5.1); Protein, Total 6.2 g/dL (6.4-8.2); Sodium Level 141 mmol/L (136-145); Thyroid Stim Hormone (TSH) 4.34 uIU/mL (0.358-3.74)
[2018-07-04 08:46] LABS: Vitamin B12 318 pg/mL (211-911)
== END ==
LOC: OLS.ACH 04:00
PROVIDERS: Visit Provider Family Medicine
DX: N18.3 Chronic kidney disease, stage 3 (moderate) (principal); D64.9 Anemia, unspecified; E03.9 Hypothyroidism, unspecified
CPT/HCPCS: 36415; 80053; 82607; 82746; 84134; 84443; 85027

== ENCOUNTER → 2018-09-04 | Outpatient (REF) | payer MEDICARE, SELFPAY ==
[2018-04-20 13:27] VITALS: BMI 24.3
[2018-09-04 08:30] LABS: Thyroid Stim Hormone (TSH) 2.18 uIU/mL (0.358-3.74)
== END | disposition home or self-care (01) ==
LOC: OLS.ACH 05:56
PROVIDERS: Visit Provider Family Medicine
DX: E03.9 Hypothyroidism, unspecified (principal)
CPT/HCPCS: 36415; 84443

== ENCOUNTER 2019-03-22 06:34 | Emergency (ER) | payer MEDICARE, SELFPAY ==
[2018-04-20 13:27] VITALS: BMI 24.3
--- NOTE | 2019-03-22 06:37 | CT_ITS ---
We are attempting to reach an attending provider to discuss findings. An addendum with communication details will be sent when the communication is complete. STUDY: CT BRAIN WITHOUT CONTRAST REASON FOR EXAM: Female, 83 years old. Stroke, found unresponsive at 5am, right sided deficit. RADIATION DOSAGE (If Supplied By Facility): CTDIvol = ( 44.99 ) mGy, DLP = ( 779.24 ) mGycm TECHNIQUE: Transaxial CT imaging of the brain was performed without administration of intravenous contrast material. Individualized dose optimization techniques were used for this CT. COMPARISON: No relevant priors. FINDINGS: Normal soft tissue structures. Normal calvarium. There is a large parenchymal hemorrhage in the left cerebral hemisphere measures approximately 9 x 4.7 x 5.5 cm. There is associated intraventricular hemorrhage and subarachnoid hemorrhage. There is midline shift measures 16mm. Normal brainstem. Normal cerebellum. There are no findings of an acute ischemic infarction. Normal visualized paranasal sinuses. CT/Brain/Head without Contrast IMPRESSION: There is a large parenchymal hemorrhage in the left cerebral hemisphere measures approximately 9 x 4.7 x 5.5 cm. There is associated intraventricular hemorrhage and subarachnoid hemorrhage. There is midline shift measures 16mm. Electronically Signed: Angel Wilson, at 6:57 EST Tel , Service support ,
[2019-03-22 06:38] VITALS: BP 151/82; PULSE 76; TEMP 36.5
[2019-03-22 06:49] VITALS: BP 151/82; PULSE 76; PULSE 85; RESP 13; RESP 18; TEMP 36.5; O2SAT 91; O2SAT 93; BMI 29.2
--- NOTE | 2019-03-22 06:49 | NURSING ---
[address] GUNDERSON
--- NOTE | 2019-03-22 06:53 | ED.VIS.GEN ---
History of Present Illness Chief Complaint: Neuro S/Sx Informant: Patient Narrative: Presents with strokelike symptoms. The patient was last seen normal at 11:00 last night. At the skilled nursing at 5 AM they were unable to awaken her. Patient was unconscious with right-sided facial droop. She cannot follow commands. Blood sugar was not low. EMS was called after 1 hour and they brought her in for further evaluation. The patient is on Eliquis for history of atrial fibrillation. Patient has a history of DNR Comfort Care arrest. Discussed with the daughter who stated the patient would not want to be intubated. Stroke team activated in route. - Past Medical History (1) Hip fracture Status: Acute (2) Subtrochanteric fracture of left femur Status: Acute (3) Afib Status: Chronic (4) CHF (congestive heart failure) Status: Chronic (5) CKD (chronic kidney disease) stage 3, GFR 30-59 ml/min Status: Chronic (6) Dementia Status: Chronic (7) Hypothyroidism Status: Chronic Past Medical History - Allergies and Home Meds Allergies/Adverse Reactions: Allergies diphenhydramine [From Benadryl] Allergy (Verified 03/22/19 07:00) Unknown flecainide Allergy (Verified 03/22/19 07:00) Unknown procainamide Allergy (Verified 03/22/19 07:00) Unknown tetanus toxoid, adsorbed Allergy (Verified 03/22/19 07:00) Unknown trimethobenzamide [From Tigan] Allergy (Verified 03/22/19 07:00) Unknown Prior records reviewed: Yes Past Medical History: - - See problem list Surgical History: hysterectomy, - - pacemaker, bunionectomy Lives: Residential Smoking Status: Never smoker Alcohol: None Drugs: None - Family History Maternal Family History: Reports: No pertinent history Paternal Family History: Reports: No pertinent history Review of Systems ROS: Unable to Obtain Physical Exam Vital Signs/Narrative: Vital Signs Temp Pulse BP 03/22/19 06:38 97.7 F L 76 151/82 H General: - - Patient's GCS is 4. Head: Normocephalic, Atraumatic Eyes: - - Pinpoint bilateral ENT: Moist mucous membranes Cardiovascular: Regular rhythm Respiratory: CTA bilaterally Abdomen: Soft Extremities: No edema Neurological: - - GCS 4. Patient has right lower facial droop. Unable to follow commands. Diagnostic/Tx/Re-eval - Medical Decision Making Patient down to CAT scan immediately. Shows a large left-sided intracranial hemorrhage with shift. At this time the patient will be made DNR comfort care only and made comfortable. Will discuss with family. ED Disposition - Plan for ED Patient: Disposition: Home or Assisted Living Diagnosis: Intracranial hemorrhage, Coma Instructions: CVA, Completed
--- NOTE | 2019-03-22 06:57 | ED.RN ---
[facility] NOT CONTACT. DR RODRIGUEZ SPOKE WITH FAMILY. REQUESTING TO MAKE PATIENT COMFORTABLE
--- NOTE | 2019-03-22 07:38 | NURSING ---
faxed chart to [facility]
--- NOTE | 2019-03-22 07:58 | NURSING ---
FAXED CHART TO ANOTHER NUMBER.
[2019-03-22 08:04] VITALS: BP 153/83; PULSE 78; RESP 18; O2SAT 92
[2019-03-22 09:04] VITALS: BP 110/73; PULSE 81; RESP 20; O2SAT 92
--- NOTE | 2019-03-22 09:48 | ED.RN ---
PT REFERRED TO [facility] FOR COMFORT CARE MEASURES. [facility] TO ARRANGE TRANSPORTATION TO FACILITY. FAMILY AT BEDSIDE, INFORMED OF PLAN OF CARE. FAMILY DENIES NEEDS AT THIS TIME, PT REMAINS UNRESPONSIVE.
[2019-03-22 10:03] VITALS: BP 121/66; PULSE 79; RESP 18; O2SAT 91
== END 2019-03-22 10:33 | disposition short-term general hospital (02) ==
PROVIDERS: Emergency Provider Emergency Medicine; Family Provider Family Medicine; PCP Family Medicine
DX: I62.9 Nontraumatic intracranial hemorrhage, unspecified (principal); R40.20 Unspecified coma; Z66 Do not resuscitate; I48.91 Unspecified atrial fibrillation; Z79.01 Long term (current) use of anticoagulants; I50.9 Heart failure, unspecified; N18.3 Chronic kidney disease, stage 3 (moderate); F03.90 Unspecified dementia, unspecified severity, without behavioral disturbance, psychotic disturbance, mood disturbance, and anxiety; E03.9 Hypothyroidism, unspecified; Z88.8 Allergy status to other drugs, medicaments and biological substances; Z95.0 Presence of cardiac pacemaker; Z90.710 Acquired absence of both cervix and uterus
CPT/HCPCS: 70450; 99251; 99285; A4216; G0463